=== PATIENT | male | born 1960 ===

== ENCOUNTER 2017-11-18 08:50 | Inpatient (IN) | payer MEDICAID, OTHER ==
[2017-11-18 09:20] VITALS: BMI 24.7
[2017-11-18] MEDS ORDERED: Sodium Chloride 0.9% 1,000 ML IV ONE (10:17)
--- NOTE | 2017-11-18 10:20 | ED PDOC ---
Lower Extremity Pain/Injury Time Seen by Provider: 11/18/17 09:54 Chief Complaint (Nursing): Lower Extremity Problem/Injury History Per: Patient, Sports Psychologist (hebrew) History/Exam Limitations: no limitations Onset/Duration Of Symptoms: Days (5), Gradual Severity: Moderate - Ankle/Foot Alleviating Factor(s): OTC Pain Medication Feet: 1 - erythema pain and swelling to left lateral mal 2 - pain and erythema Past Medical History Reviewed: Historical Data, Nursing Documentation, Vital Signs Vital Signs: Last Vital Signs Temp 98.5 F 11/18/17 09:20 Pulse 97 H 11/18/17 09:20 Resp 18 11/18/17 09:20 BP 117/66 11/18/17 09:20 Pulse Ox 98 11/18/17 09:20 - Medical History PMH: No Chronic Diseases - Family History Family History: States: Unknown Family Hx - Living Arrangements Living Arrangements: With Family - Social History Current smoker - smoking cessation education provided: No Drugs: Denies - Home Medications Home Medications: Ambulatory Orders Medication Instructions Recorded Glimepiride [Amaryl] 4 mg PO BID 11/18/17 metFORMIN [glucOPHAGE] 1,000 mg PO BID 11/18/17 - Allergies Allergies/Adverse Reactions: Allergies Allergy/AdvReac Type Severity Reaction Status Date / Time No Known Allergies Allergy Verified 11/18/17 09:47 Review of Systems ROS Statement: Except As Marked, All Systems Reviewed And Found Negative Constitutional: Negative for: Fever, Chills Cardiovascular: Negative for: Chest Pain, Palpitations Respiratory: Negative for: Cough, Shortness of Breath Gastrointestinal: Negative for: Nausea, Vomiting, Abdominal Pain Musculoskeletal: Positive for: Leg Pain (left ankle) Neurological: Negative for: Weakness, Numbness Physical Exam - Reviewed Nursing Documentation Reviewed: Yes Vital Signs Reviewed: Yes - Physical Exam Appears: Positive for: Uncomfortable Head Exam: Positive for: ATRAUMATIC, NORMAL INSPECTION, NORMOCEPHALIC Eye Exam: Positive for: Normal appearance, EOMI, PERRL Neck: Positive for: Normal, Painless ROM, Supple Cardiovascular/Chest: Positive for: Regular Rate, Rhythm, Chest Non Tender Respiratory: Positive for: Normal Breath Sounds. Negative for: Decreased Breath Sounds, Accessory Muscle Use, Crackles, Rales, Rhonchi, Stridor, Wheezing Gastrointestinal/Abdominal: Positive for: Normal Exam, Bowel Sounds, Soft. Negative for: Tenderness Back: Positive for: Normal Inspection. Negative for: L CVA Tenderness, R CVA Tenderness Extremity: Positive for: Normal ROM, Pedal Edema (on left a2+), Other (swelling and erythema to left lateral mal, 2 inc erythema to lower right cochran, foot nvi) . Negative for: Calf Tenderness Neurologic/Psych: Positive for: Alert, disbursement clerk II-XII, Oriented. Negative for: Motor/Sensory Deficits - Laboratory Results Result Diagrams: 11/18/17 10:40 11/18/17 10:40 - ECG O2 Sat by Pulse Oximetry: 98 Medical Decision Making Medical Decision Making: pt seen and eval by podiatry, pt has pain in left ankle, unable to ambulate due to the pain now fever. will start antibotics for septic arthritis pending cultures. Disposition - Clinical Impression Clinical Impression: Septic arthritis of ankle - Patient ED Disposition Is Patient to be Admitted: Yes Counseled Patient/Family Regarding: Studies Performed, Diagnosis - Disposition Disposition Time: 18:00 Condition: FAIR - Pt Status Changed To: Hospital Disposition Of: Inpatient - Admit Certification Admit to Inpatient:: After my assessment, the patient will require hospitalization for at least two midnights. This is because of the severity of symptoms shown, intensity of services needed, and/or the medical risk in this patient being treated as an outpatient. - POA Present On Arrival: None
[2017-11-18 10:52] LABS: BASO % 0.5 % (0.0-2.0); EOS % 0.6 % (0.0-4.0); HEMOGLOBIN 13.3 g/dL (12.0-18.0); LYMPH # 0.7 K/uL (1.0-4.3); LYMPH % 10.6 % (20.0-40.0); MEAN CELL VOLUME 77.4 fl (80.0-94.0); MEAN CORPUSCULAR HGB CONC 33.6 g/dL (33.0-37.0); MEAN PLATELET VOLUME 8.4 fl (7.2-11.7); MONO # 0.7 K/uL (0.0-0.8); NEUT # 4.8 K/uL (1.8-7.0); NEUT % 77.3 % (50.0-75.0); NRBC % 0.1 % (0.0-0.0); RBC 5.09 Mil/uL (4.40-5.90); WHITE BLOOD COUNT 6.2 K/uL (4.8-10.8)
--- NOTE | 2017-11-18 11:02 | RAD ---
PROCEDURE: Left Ankle Radiographs. HISTORY: pain and swelling for 3 days COMPARISON: None FINDINGS: BONES: Evidence of acute displaced fracture nor dislocation. The. Small anterior and posterior calcaneal enthesophytes former slightly larger than latter. JOINTS: Mild degenerative osteoarthritis tibiotalar articulation. SOFT TISSUES: Minimal soft tissue swelling overlying the lateral malleolus OTHER FINDINGS: None. IMPRESSION: No evidence of acute displaced fracture nor dislocation with minimal soft tissue swelling overlying the lateral malleolus. . Minor DJD as above.
[2017-11-18 11:08] LABS: ALB/GLOB RATIO 0.9 (1.0-2.1); ALBUMIN 3.8 g/dL (3.5-5.0); ALT/SGPT 37 U/L (21-72); AST/SGOT 33 U/L (17-59); BLOOD UREA NITROGEN 13 mg/dl (9-20); GFR AFRICAN-AMERICAN > 60; GFR NON-AFRICAN AMERICAN > 60
[2017-11-18 11:24] LABS: INR 1.1 (0.9-1.2); PARTIAL THROMBOPLASTIN TIME 34.1 Seconds (25.6-37.1); PROTHROMBIN TIME 11.8 Seconds (9.8-13.1)
[2017-11-18 11:27] LABS: URIC ACID 3.4 mg/Dl (3.5-8.5)
--- NOTE | 2017-11-18 12:26 | US ---
HISTORY: Pain PRIORS: None. FINDINGS: 2-D, color and duplex Doppler analysis of the lower extremity venous circulation using routine protocol from the femoral veins through the popliteal veins. Venous compressibility: Normal. Flow and augmentation patterns: Normal. Visualized veins upper third of calf: Normal. Pizarro cyst: None. IMPRESSION: No sonographic or Doppler evidence for DVT in left lower extremity.
[2017-11-18] MEDS ORDERED: Oxycodone/Acetaminophen 5/325 mg Tab PO STA (15:05)
--- NOTE | 2017-11-18 15:13 | CP.PCM.CON ---
History of Present Illness - History of Present Illness History of Present Illness: Orthopedic Consult Note- Dr. Recinos 57 y.o male with PMH of DM presents to the ED for left ankle pain secondary to trauma. Patient reports last Monday on 11/11/17, he twisted his ankle while walking outside. He reports hearing a pop and felt like "his skin cracked". He did not see a physician after the incident. He has been resting at home. Currently, unemployed. Patient reports pain, 9/10 on VAS scale today and reports pain has gotten progressively worse. He reports that pain cause him to have chills. Patient reports chills today and for the last few days. He describes the pain as a pulsating pain. He reports that he drink Tylenol and it helps a little with the pain. Patient also reports swelling and redness. He reports the red patch on the leg was from a previous injury prior to 11/11/17 but since the ankle injury, the red patch has gotten more red. Patient has been walking in shoes. He denies nausea, shortness of breath, chest pain, diarrhea, calf tenderness or pain. No urinary problems. Denies numbness and tingling. Patient reports chills in the ED PMD: Dr. West Holman PMH: DM PSH: soft mass removal from scalp ALL: NKDA MEDS: Metformin, Glimepiride FH: denies SH: former smoker; smoker for 20 year 3 cigarettes per day, denies socially drinking, denies illicit drug use, unemployed Past Patient History - Infectious Disease Hx of Infectious Diseases: None - Past Social History Drugs: Denies - CARDIAC Hx Cardiac Disorders: No - ENDOCRINE/METABOLIC Hx Endocrine Disorders: Yes Hx Diabetes Mellitus Type 2: Yes - PSYCHIATRIC Hx Psychophysiologic Disorder: No Hx Substance Use: No - SURGICAL HISTORY Hx Surgeries: No - ANESTHESIA Hx Anesthesia: No Meds Allergies/Adverse Reactions: Allergies Allergy/AdvReac Type Severity Reaction Status Date / Time No Known Allergies Allergy Verified 11/18/17 09:47 Physical Exam - Constitutional Appears: Well, Non-toxic, No Acute Distress - Extremities Exam Extremities exam: Negative for: calf tenderness Additional comments: Vasc: DP and PT 2/4 bilaterally, temperature gradient warm to warm bilaterally, L slightly warmer than R, localized nonpitting edema noted to the lateral malleolus Ortho: pain with palpation to the anterior border of the distal malleolus shaft - bone and surrounding soft tissue, pain with palpation at the patches of erythema, no pain at the level of the foot or areas distal to the ankle joint, pain at the Achilles tendon, no pain with the peroneals, pain with external rotation and dorsiflexion at the ankle, pain with ankle ROM Neuro: protective and gross sensation intact bilaterally, denies numbness or tingling Derm: anterior lower leg erythema/dark red patch measuring approximately 4 x 5 cm, no streaking, no fluctanance, no open lesions noted ecchymosis and erythema noted to the lateral aspect of the left ankle, no streaking, no fluctanance, no open lesions noted - Neurological Exam Neurological exam: Alert, Oriented x3 - Psychiatric Exam Psychiatric exam: Normal Affect, Normal Mood Results - Vital Signs Recent Vital Signs: Last Vital Signs Temp 98.5 F 11/18/17 09:20 Pulse 97 H 11/18/17 09:20 Resp 18 11/18/17 09:20 BP 117/66 11/18/17 09:20 Pulse Ox 98 11/18/17 10:24 - Labs Result Diagrams: 11/18/17 10:40 11/18/17 10:40 Labs: Laboratory Results - last 24 hr 11/18/17 11/18/17 11/18/17 10:40 10:40 10:40 WBC 6.2 RBC 5.09 Hgb 13.3 Hct 39.4 MCV 77.4 L MCH 26.0 L MCHC 33.6 RDW 13.0 Plt Count 253 MPV 8.4 Neut % (Auto) 77.3 H Lymph % (Auto) 10.6 L [place] % (Auto) 11.0 H Eos % (Auto) 0.6 Baso % (Auto) 0.5 Neut # (Auto) 4.8 Lymph # (Auto) 0.7 L [place] # (Auto) 0.7 Eos # (Auto) 0.0 Baso # (Auto) 0.0 ESR 69 H PT 11.8 INR 1.1 APTT 34.1 Sodium 138 Potassium 4.4 Chloride 98 Carbon Dioxide 27 Anion Gap 17 BUN 13 Creatinine 0.6 L Est GFR ( Amer) > 60 Est GFR (Non-Af Amer) > 60 Random Glucose 293 H Uric Acid 3.4 L Calcium 9.0 Total Bilirubin 0.5 AST 33 ALT 37 Alkaline Phosphatase 144 H Total Protein 8.0 Albumin 3.8 Globulin 4.1 H Albumin/Globulin Ratio 0.9 L Assessment & Plan - Assessment and Plan (Free Text) Assessment: 57 y.o male with PMH of DM presents to the ED for 1. left ankle pain secondary to trauma, likely ankle sprain vs ankle contusion 2. left anterior leg erythema- possible cellulitis 3. r/o gout, septic joint Plan: Patient examined and evaluated Discussed plan in detail with attending Labs, chart, vitals reviewed- febrile, absent leukocytosis X-rays left ankle-no fracture noted; WNL Ordered high tib-fib to r/o bony pathology f/u MRI of ankle and left lower extremity 1% lidocaine in a local block fashion to left ankle, cleansed site with betadine , and aspirated left ankle joint with 18 gauge needle. Patient tolerated the procedure well without incident. Aspiration of left ankle synovial performed in ED- about 3cc of yellow synovial fluid with minimal blood aspirated as well, no yellow cloudiness appreciated Synovial fluid sent to lab -slightly elevated synovial fluid -gram stain no WBC organism -less likely septic ankle joint Uric acid low ESR- elevated 69 c/w abx per medicine Will continue to follow patient while in house Thank you for allowing us to take part in patient's care
[2017-11-18 15:52] LABS: VENOUS BLOOD GAS PCO2 37 mmHg (40-60); VENOUS BLOOD GAS PO2 61 mm/Hg (30-55); VENOUS BLOOD PH 7.48 (7.32-7.43)
[2017-11-18] MEDS: cefTRIAXone 2 GM in Sodium Chloride 0.9% 100 ML IVPB SCH (16:00)
[2017-11-18] MEDS ORDERED: Povidone Iodine Oint 10% Foilpak UD TOP ONE (16:43)
[2017-11-18] MEDS ORDERED: Lidocaine 1% Inj (20ml) IJ ONE (16:43)
[2017-11-18] MEDS ORDERED: Povidone Iodine Topical 10% Sol ONE (16:53)
[2017-11-18] MEDS ORDERED: Lidocaine 1% Inj (20ml) ONE (16:53)
[2017-11-18] MEDS ORDERED: Glucagon Recombinant 1 mg Inj IM PRN (17:39)
[2017-11-18] MEDS ORDERED: Dextrose 50% SYRINGE Inj (50 ml) IV PRN (17:39)
--- NOTE | 2017-11-18 17:54 | CP.PCM.HP ---
History of Present Illness - History of Present Illness History of Present Illness: Hx taken from patient PMD: West Holman. Made appt for [facility] next month 57 y/o M with PMHx of NIDDM presented to ED c/o L/ankle and L/leg pain. As per patient he developed left ankle pain after twisting his L/leg around 1 week ago accidentally. Patient has been having increased left ankle pain since then with redness associated to the external malleolus area. Patient also c/o increased pain in L/anterior tibial area since he twisted his leg, however he states that redness in this area was present before, and was not related to trauma but has worsened since then. Tactile fever and chills at home for the past 2 days. Denies CP, palpitations, nausea, vomiting, SOB, headache, LE numbness or tingling. He is being compliant with his home meds for DM but admits not checking BS levels at home. ED course: CBC: No white count, slight left shift Temp 102.2, HR 90s Given Percocet x1, Tylenol x1, started on Vanco/Rocephin Ankle Xray: Minimal Soft tissue edema L/Lateral ankle area LE US neg for DVT Podiatry consulted PMHx: DM SHx: Denies tobacco, etoh or drugs SxHx: Scalp lipoma FHx: DM Meds: as per med rec Allergies: NKDA Present on Admission - Present on Admission Any Indicators Present on Admission: No Review of Systems - Review of Systems All systems: reviewed and no additional remarkable complaints except (Those described on HPI) Past Patient History - Infectious Disease Hx of Infectious Diseases: None - Past Social History Smoking Status: Never Smoked Alcohol: None Drugs: Denies - CARDIAC Hx Cardiac Disorders: No - PULMONARY Hx Respiratory Disorders: No - NEUROLOGICAL Hx Neurological Disorder: No - HEENT Hx HEENT Problems: No - RENAL Hx Chronic Kidney Disease: No - ENDOCRINE/METABOLIC Hx Endocrine Disorders: Yes (DM) Hx Diabetes Mellitus Type 2: Yes - HEMATOLOGICAL/ONCOLOGICAL Hx Blood Disorders: No - INTEGUMENTARY Hx Dermatological Problems: Yes - MUSCULOSKELETAL/RHEUMATOLOGICAL Hx Musculoskeletal Disorders: No - GASTROINTESTINAL Hx Gastrointestinal Disorders: No - GENITOURINARY/GYNECOLOGICAL Hx Genitourinary Disorders: No - PSYCHIATRIC Hx Psychophysiologic Disorder: No - SURGICAL HISTORY Hx Surgeries: Yes Other/Comment: Scalp cyst - ANESTHESIA Hx Anesthesia: Yes Meds Allergies/Adverse Reactions: Allergies Allergy/AdvReac Type Severity Reaction Status Date / Time No Known Allergies Allergy Verified 11/18/17 09:47 Physical Exam - Constitutional Appears: Non-toxic - Eye Exam Eye Exam: EOMI, PERRL - ENT Exam ENT Exam: Mucous Membranes Moist - Neck Exam Neck exam: Positive for: Full Rom - Respiratory Exam Respiratory Exam: Clear to Auscultation Bilateral, NORMAL BREATHING PATTERN. absent: Rales, Rhonchi, Wheezes, Respiratory Distress, Stridor - Cardiovascular Exam Cardiovascular Exam: REGULAR RHYTHM, +S1, +S2. absent: Gallop, Systolic Murmur - GI/Abdominal Exam GI & Abdominal Exam: Normal Bowel Sounds, Soft. absent: Distended, Firm, Guarding, Rebound, Rigid, Tenderness - Extremities Exam Extremities exam: Positive for: normal capillary refill, tenderness (L/lower ankle and anterior tibial area), pedal pulses present. Negative for: calf tenderness, normal inspection (redness with mild swelling around L/ext malleolus area) - Neurological Exam Neurological exam: Alert, Oriented x3, Reflexes Normal - Skin Skin Exam: Warm Results - Vital Signs Recent Vital Signs: Last Vital Signs Temp 100 F H 11/18/17 17:32 Pulse 88 11/18/17 17:32 Resp 20 11/18/17 17:32 BP 127/70 11/18/17 17:32 Pulse Ox 97 11/18/17 17:32 - Labs Result Diagrams: 11/18/17 10:40 11/18/17 10:40 Labs: Laboratory Results - last 24 hr 11/18/17 11/18/17 11/18/17 10:40 10:40 10:40 WBC 6.2 RBC 5.09 Hgb 13.3 Hct 39.4 MCV 77.4 L MCH 26.0 L MCHC 33.6 RDW 13.0 Plt Count 253 MPV 8.4 Neut % (Auto) 77.3 H Lymph % (Auto) 10.6 L [place] % (Auto) 11.0 H Eos % (Auto) 0.6 Baso % (Auto) 0.5 Neut # (Auto) 4.8 Lymph # (Auto) 0.7 L [place] # (Auto) 0.7 Eos # (Auto) 0.0 Baso # (Auto) 0.0 ESR 69 H PT 11.8 INR 1.1 APTT 34.1 pO2 VBG pH VBG pCO2 VBG HCO3 VBG Total CO2 VBG O2 Sat (Calc) VBG Base Excess VBG Potassium Glucose Lactate FiO2 Sodium 138 Potassium 4.4 Chloride 98 Carbon Dioxide 27 Anion Gap 17 BUN 13 Creatinine 0.6 L Est GFR ( Amer) > 60 Est GFR (Non-Af Amer) > 60 POC Glucose (mg/dL) Random Glucose 293 H Uric Acid 3.4 L Calcium 9.0 Total Bilirubin 0.5 AST 33 ALT 37 Alkaline Phosphatase 144 H Total Protein 8.0 Albumin 3.8 Globulin 4.1 H Albumin/Globulin Ratio 0.9 L Venous Blood Potassium 11/18/17 11/18/17 11/18/17 15:41 15:48 17:23 WBC RBC Hgb Hct MCV MCH MCHC RDW Plt Count MPV Neut % (Auto) Lymph % (Auto) [place] % (Auto) Eos % (Auto) Baso % (Auto) Neut # (Auto) Lymph # (Auto) [place] # (Auto) Eos # (Auto) Baso # (Auto) ESR PT INR APTT pO2 61 H VBG pH 7.48 H VBG pCO2 37 L VBG HCO3 27.9 VBG Total CO2 28.7 H VBG O2 Sat (Calc) 96.6 H VBG Base Excess 4.0 H VBG Potassium 4.1 Glucose 179 H Lactate 1.2 FiO2 21.0 Sodium 134.0 Potassium Chloride 104.0 Carbon Dioxide Anion Gap BUN Creatinine Est GFR ( Amer) Est GFR (Non-Af Amer) POC Glucose (mg/dL) 192 H 193 H Random Glucose Uric Acid Calcium Total Bilirubin AST ALT Alkaline Phosphatase Total Protein Albumin Globulin Albumin/Globulin Ratio Venous Blood Potassium 4.1 Assessment & Plan - Assessment and Plan (Free Text) Assessment: 57 y/o M with PMHx of DM admitted for possible septic arthritis Left ankle swelling R/O Septic arthritis Could be ankle sprain or any noninfectious inflammatory arthritis Fever, chills, ankle swelling/redness Hx of trauma No WBC. Elevated ESR Uric acid low DM unknown if controlled Orthopedic consult appreciated(Dr Recinos) S/P Joint aspiration by Podiatry resident Has cellulitis area on same leg, anterior tibial aspect with small abrasion that could represent source of infection Rocephin 2 g daily day 1 Vanco 1g q12h day 1 Ibuprofen 600mg q8h Toradol 15 mg IV PRN for severe pain Tylenol PRN for fever F/U Procalcitonin F/U Synovial fluid exam F/U BCx F/U RF, CBC and BMP AM Cellulitis left leg Skin marked Small abrasion + Uncontrlled DM could be reason of onset On Rocephin and Vanco IV NIDDM, poss uncontrolled Patient not checking BS at home Random BS at ED 190s C/w Metformin 1000mg BID and Glimepiride 4mg BID for now ISS ACHS low dose F/U HgbA1c Prophylactic measures DVT: Lovenox 40 mg daily AAD: Florastor BID
[2017-11-18] MEDS: Sodium Chloride 0.9% 1,000 ML IV SCH (18:21)
[2017-11-18 18:39] LABS: FLUID TYPE SYNOVIAL FLUID
[2017-11-18 19:37] LABS: SF GROSS APPEARANCE CLOUDY (CLEAR)
[2017-11-18 19:41] LABS: SYNOVIAL FLUID COMMENT BROWNISH
[2017-11-18 20:19] LABS: HDL CHOLESTEROL 24 MG/DL (30-70)
[2017-11-18 20:30] LABS: LDL CHOLESTEROL 65 mg/dL (0-129)
[2017-11-18 21:17] LABS: SYNOVIAL FLUID MONO/MACROPHAGE 15 % (0-0)
--- NOTE | 2017-11-18 21:32 | CP.PCM.CON ---
History of Present Illness - History of Present Illness History of Present Illness: ID: 57 yo unemployed male CC: pain in are of L distal forelg and L ankle HPI- please refer to resident, DR Garner history Past Patient History - Infectious Disease Hx of Infectious Diseases: None - Past Medical History & Family History Past Medical History?: Yes - Past Social History Smoking Status: Never Smoked Alcohol: None Drugs: Denies - CARDIAC Hx Cardiac Disorders: No - PULMONARY Hx Respiratory Disorders: No - NEUROLOGICAL Hx Neurological Disorder: No - HEENT Hx HEENT Problems: No - RENAL Hx Chronic Kidney Disease: No - ENDOCRINE/METABOLIC Hx Endocrine Disorders: Yes (DM) Hx Diabetes Mellitus Type 2: Yes - HEMATOLOGICAL/ONCOLOGICAL Hx Blood Disorders: No - INTEGUMENTARY Hx Dermatological Problems: Yes - MUSCULOSKELETAL/RHEUMATOLOGICAL Hx Musculoskeletal Disorders: No - GASTROINTESTINAL Hx Gastrointestinal Disorders: No - GENITOURINARY/GYNECOLOGICAL Hx Genitourinary Disorders: No - PSYCHIATRIC Hx Psychophysiologic Disorder: No - SURGICAL HISTORY Hx Surgeries: Yes Other/Comment: Scalp cyst - ANESTHESIA Hx Anesthesia: Yes Meds Allergies/Adverse Reactions: Allergies Allergy/AdvReac Type Severity Reaction Status Date / Time No Known Allergies Allergy Verified 11/18/17 09:47 - Medications Medications: Current Medications Acetaminophen (Tylenol 325mg Tab) 650 mg PO Q6 PRN PRN Reason: Fever >100.4 F Dextrose (Dextrose 50% Inj) 0 ml IV STAT PRN; Protocol PRN Reason: Hypoglycemia Protocol Dextrose (Glutose 15) 0 gm PO ONCE PRN; Protocol PRN Reason: Hypoglycemia Protocol Enoxaparin Sodium (Lovenox) 40 mg SC DAILY [place] PRN Reason: Protocol Famotidine (Pepcid) 20 mg PO BID [place] Glipizide (Glucotrol Xl) 10 mg PO BIDWM [facility] Glucagon (Glucagen Diagnostic Kit) 0 mg IM STAT PRN; Protocol PRN Reason: Hypoglycemia Protocol Ceftriaxone Sodium 2 gm/ (Sodium Chloride) 100 mls @ 100 mls/hr IVPB DAILY [place] PRN Reason: Protocol Last Admin: 11/18/17 16:00 Dose: 100 mls/hr Sodium Chloride (Sodium Chloride 0.9%) 1,000 mls @ 100 mls/hr IV .Q10H [place] Last Admin: 11/18/17 18:21 Dose: 100 mls/hr Vancomycin HCl 1 gm/ Sodium (Chloride) 250 mls @ 166.667 mls/hr IVPB Q12H [place] PRN Reason: Protocol Ibuprofen (Motrin Tab) 600 mg PO Q8 [facility] Influenza Virus Vaccine (Afluria (Pf)(18yr & Older)) 0.5 ml IM .ONCE ONE Stop: 11/18/17 22:01 Insulin Human Regular (Humulin R) 0 units SC ACCU-CHECK [place] PRN Reason: Protocol Ketorolac Tromethamine (Toradol) 15 mg IVP Q6 PRN PRN Reason: Pain, severe (8-10) Last Admin: 11/18/17 20:11 Dose: 15 mg Metformin HCl (Glucophage) 1,000 mg PO BIDWM [facility] Pneumococcal Polyvalent Vaccine (Pneumovax 23 Vaccine) 0.5 ml IM .ONCE ONE Stop: 11/18/17 22:01 Saccharomyces Boulardii (Florastor) 250 mg PO BID [facility] Physical Exam - Additional Findings Additional findings: Musculoskekltal stance/gait- defrred pt with are of erythema on distal 1/3 medial aspect odf tibia N/V intact no increased pain on passive flexion/dorsiflexion no pain on passive rom tenderness in are of syndesmosis Results - Vital Signs Recent Vital Signs: Last Vital Signs Temp 100 F H 11/18/17 17:32 Pulse 88 11/18/17 17:32 Resp 20 11/18/17 17:32 BP 127/70 11/18/17 17:32 Pulse Ox 97 11/18/17 17:32 - Labs Result Diagrams: 11/18/17 10:40 11/18/17 10:40 Labs: Laboratory Results - last 24 hr 11/18/17 11/18/17 11/18/17 10:40 10:40 10:40 WBC 6.2 RBC 5.09 Hgb 13.3 Hct 39.4 MCV 77.4 L MCH 26.0 L MCHC 33.6 RDW 13.0 Plt Count 253 MPV 8.4 Neut % (Auto) 77.3 H Lymph % (Auto) 10.6 L [place] % (Auto) 11.0 H Eos % (Auto) 0.6 Baso % (Auto) 0.5 Neut # (Auto) 4.8 Lymph # (Auto) 0.7 L [place] # (Auto) 0.7 Eos # (Auto) 0.0 Baso # (Auto) 0.0 ESR 69 H PT 11.8 INR 1.1 APTT 34.1 pO2 VBG pH VBG pCO2 VBG HCO3 VBG Total CO2 VBG O2 Sat (Calc) VBG Base Excess VBG Potassium Glucose Lactate FiO2 Sodium 138 Potassium 4.4 Chloride 98 Carbon Dioxide 27 Anion Gap 17 BUN 13 Creatinine 0.6 L Est GFR ( Amer) > 60 Est GFR (Non-Af Amer) > 60 POC Glucose (mg/dL) Random Glucose 293 H Uric Acid 3.4 L Calcium 9.0 Total Bilirubin 0.5 AST 33 ALT 37 Alkaline Phosphatase 144 H Total Protein 8.0 Albumin 3.8 Globulin 4.1 H Albumin/Globulin Ratio 0.9 L Triglycerides Cholesterol LDL Cholesterol Direct HDL Cholesterol Venous Blood Potassium Fluid Type Synovial WBC Synovial RBC Synovial Neutrophils Synovial Lymphocytes Synov Monos/Macrophage Synovial Fluid Comment 11/18/17 11/18/17 11/18/17 15:41 15:48 17:23 WBC RBC Hgb Hct MCV MCH MCHC RDW Plt Count MPV Neut % (Auto) Lymph % (Auto) [place] % (Auto) Eos % (Auto) Baso % (Auto) Neut # (Auto) Lymph # (Auto) [place] # (Auto) Eos # (Auto) Baso # (Auto) ESR PT INR APTT pO2 61 H VBG pH 7.48 H VBG pCO2 37 L VBG HCO3 27.9 VBG Total CO2 28.7 H VBG O2 Sat (Calc) 96.6 H VBG Base Excess 4.0 H VBG Potassium 4.1 Glucose 179 H Lactate 1.2 FiO2 21.0 Sodium 134.0 Potassium Chloride 104.0 Carbon Dioxide Anion Gap BUN Creatinine Est GFR ( Amer) Est GFR (Non-Af Amer) POC Glucose (mg/dL) 192 H 193 H Random Glucose Uric Acid Calcium Total Bilirubin AST ALT Alkaline Phosphatase Total Protein Albumin Globulin Albumin/Globulin Ratio Triglycerides Cholesterol LDL Cholesterol Direct HDL Cholesterol Venous Blood Potassium 4.1 Fluid Type Synovial WBC Synovial RBC Synovial Neutrophils Synovial Lymphocytes Synov Monos/Macrophage Synovial Fluid Comment 11/18/17 11/18/17 18:30 19:00 WBC RBC Hgb Hct MCV MCH MCHC RDW Plt Count MPV Neut % (Auto) Lymph % (Auto) [place] % (Auto) Eos % (Auto) Baso % (Auto) Neut # (Auto) Lymph # (Auto) [place] # (Auto) Eos # (Auto) Baso # (Auto) ESR PT INR APTT pO2 VBG pH VBG pCO2 VBG HCO3 VBG Total CO2 VBG O2 Sat (Calc) VBG Base Excess VBG Potassium Glucose Lactate FiO2 Sodium Potassium Chloride Carbon Dioxide Anion Gap BUN Creatinine Est GFR ( Amer) Est GFR (Non-Af Amer) POC Glucose (mg/dL) Random Glucose Uric Acid Calcium Total Bilirubin AST ALT Alkaline Phosphatase Total Protein Albumin Globulin Albumin/Globulin Ratio Triglycerides 88 Cholesterol 115 LDL Cholesterol Direct 65 HDL Cholesterol 24 L Venous Blood Potassium Fluid Type Synovial fluid Synovial WBC 1926.0 H Synovial RBC 4455.0 H Synovial Neutrophils 44.0 H Synovial Lymphocytes 41.0 H Synov Monos/Macrophage 15 H Synovial Fluid Comment Brownish - Impressions Impression: Xrays- negative for fracture Assessment & Plan - Assessment and Plan (Free Text) Assessment: A- contusion vs ankle sprain no evidence for septic ankle P MRI ankle/ tibia, fibula
[2017-11-18] MEDS ORDERED: Pneumococcal 23-Valent Vaccine IM ONE (22:00)
[2017-11-18] MEDS ORDERED: Influenza Vaccine 18yr & older 0.5 ML/45 MCG SYR IM ONE (22:00)
[2017-11-18] MEDS: Insulin Regular 100 units/ml SC SCH (22:43)
[2017-11-19 04:17] LABS: URINE BACTERIA RARE (<OCC); URINE BILIRUBIN NEGATIVE (NEGATIVE); URINE BLOOD NEGATIVE (NEGATIVE); URINE CLARITY SLIGHTY-CLOUDY (Clear); URINE COLOR YELLOW (YELLOW); URINE GLUCOSE (UA) >=500 mg/dL (Normal); URINE LEUKOCYTE ESTERASE NEG Leu/uL (Negative); URINE PROTEIN 30 mg/dL (NEGATIVE); URINE UROBILINOGEN 0.2-1.0 mg/dL (0.2-1.0)
[2017-11-19] MEDS: Sodium Chloride 0.9% 1,000 ML IV SCH ×2 (04:53→15:21)
[2017-11-19 07:09] LABS: BASO % 0.5 % (0.0-2.0); EOS % 0.6 % (0.0-4.0); HEMOGLOBIN 12.5 g/dL (12.0-18.0); LYMPH # 0.8 K/uL (1.0-4.3); MEAN CELL VOLUME 77.4 fl (80.0-94.0); MEAN CORPUSCULAR HEMOGLOBIN 26.3 pg (27.0-31.0); MEAN PLATELET VOLUME 8.6 fl (7.2-11.7); MONO # 0.6 K/uL (0.0-0.8); MONO % 11.6 % (0.0-10.0); NEUT # 3.4 K/uL (1.8-7.0); NEUT % 70.3 % (50.0-75.0); NRBC % 0.1 % (0.0-0.0); RBC 4.77 Mil/uL (4.40-5.90); RED CELL DISTRIBUTION WIDTH 12.8 % (11.5-14.5); WHITE BLOOD COUNT 4.9 K/uL (4.8-10.8)
[2017-11-19 07:15] LABS: BLOOD UREA NITROGEN 12 mg/dl (9-20); CALCIUM 8.5 mg/dL (8.4-10.2); GFR AFRICAN-AMERICAN > 60; GFR NON-AFRICAN AMERICAN > 60
[2017-11-19] MEDS: GlipiZIDE 10 mg SR Tab PO SCH ×2 (08:27→16:44)
[2017-11-19] MEDS: Saccharomyces Boulardi 250 mg Cap PO SCH ×2 (08:27→16:43)
[2017-11-19] MEDS: Enoxaparin 40 mg Syringe SC SCH (08:28)
[2017-11-19] MEDS: Insulin Regular 100 units/ml SC SCH ×4 (08:28→22:19)
--- NOTE | 2017-11-19 09:22 | RAD ---
PROCEDURE: Radiographs of the left tibia and fibula. HISTORY: r/o high tib-fib pathology COMPARISON: Comparison made with ankle radiographs 11/18/2017 TECHNIQUE: Frontal and lateral views obtained. FINDINGS: BONES: No fracture or destructive lesion. 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 IMPRESSION: No evidence of acute displaced fracture nor dislocation. .
[2017-11-19] MEDS: cefTRIAXone 2 GM in Sodium Chloride 0.9% 100 ML IVPB SCH (11:01)
--- NOTE | 2017-11-19 12:45 | CP.PCM.PN ---
Subjective - Date & Time of Evaluation Date of Evaluation: 11/19/17 Time of Evaluation: 08:50 - Subjective Subjective: Pt seen at bedside, reports being seen by specialist. pain controlled. feeling ok. denies any chest pain, fevers, chills, nausea or vomiting Objective - Vital Signs/Intake and Output Vital Signs (last 24 hours): Temp Pulse Resp BP Pulse Ox 97.8 F 70 20 134/67 100 11/19/17 08:01 11/19/17 08:01 11/19/17 08:01 11/19/17 08:01 11/19/17 08:01 - Medications Medications: Current Medications Acetaminophen (Tylenol 325mg Tab) 650 mg PO Q6 PRN PRN Reason: Fever >100.4 F Dextrose (Dextrose 50% Inj) 0 ml IV STAT PRN; Protocol PRN Reason: Hypoglycemia Protocol Dextrose (Glutose 15) 0 gm PO ONCE PRN; Protocol PRN Reason: Hypoglycemia Protocol Enoxaparin Sodium (Lovenox) 40 mg SC DAILY [facility] PRN Reason: Protocol Last Admin: 11/19/17 08:28 Dose: 40 mg Famotidine (Pepcid) 20 mg PO BID [facility] Last Admin: 11/19/17 08:29 Dose: 20 mg Glipizide (Glucotrol Xl) 10 mg PO BIDWM [facility] Last Admin: 11/19/17 08:27 Dose: 10 mg Glucagon (Glucagen Diagnostic Kit) 0 mg IM STAT PRN; Protocol PRN Reason: Hypoglycemia Protocol Ceftriaxone Sodium 2 gm/ (Sodium Chloride) 100 mls @ 100 mls/hr IVPB DAILY [facility] PRN Reason: Protocol Last Admin: 11/19/17 11:01 Dose: 100 mls/hr Sodium Chloride (Sodium Chloride 0.9%) 1,000 mls @ 100 mls/hr IV .Q10H [facility] Last Admin: 11/19/17 04:53 Dose: Not Given Vancomycin HCl 1 gm/ Sodium (Chloride) 250 mls @ 166.667 mls/hr IVPB Q12@0500, 1700 [facility] PRN Reason: Protocol Last Admin: 11/19/17 04:54 Dose: 166.667 mls/hr Ibuprofen (Motrin Tab) 600 mg PO Q8 [facility] Last Admin: 11/19/17 08:32 Dose: 600 mg Insulin Human Regular (Humulin R) 0 units SC ACCU-CHECK [facility] PRN Reason: Protocol Last Admin: 11/19/17 12:01 Dose: 3 units Ketorolac Tromethamine (Toradol) 15 mg IVP Q6 PRN PRN Reason: Pain, severe (8-10) Last Admin: 11/18/17 20:11 Dose: 15 mg Metformin HCl (Glucophage) 1,000 mg PO BIDWM [facility] Last Admin: 11/19/17 08:27 Dose: 1,000 mg Saccharomyces Boulardii (Florastor) 250 mg PO BID [facility] Last Admin: 11/19/17 08:27 Dose: 250 mg - Labs Labs: 11/19/17 05:25 11/19/17 05:25 PT 11.8 Seconds (9.8-13.1) 11/18/17 10:40 INR 1.1 (0.9-1.2) 11/18/17 10:40 APTT 34.1 Seconds (25.6-37.1) 11/18/17 10:40 - Constitutional Appears: Non-toxic, No Acute Distress - Respiratory Exam Respiratory Exam: Clear to Ausculation Bilateral, NORMAL BREATHING PATTERN - Cardiovascular Exam Cardiovascular Exam: REGULAR RHYTHM, +S1, +S2 - GI/Abdominal Exam GI & Abdominal Exam: Soft, Normal Bowel Sounds - Neurological Exam Neurological Exam: Alert, CN II-XII Intact, Oriented x3 Assessment and Plan - Assessment and Plan (Free Text) Assessment: 57 y/o M with PMHx of Type 2 non -insulin dependet DM admitted for possible septic arthritis which has since been rule out. Left ankle swelling and left leg cellulitis Sepsis resolved continue with ceftriaxone and vanco (day 2) Ortho following, recommendations appreciated NIDDM, uncontrolled (A1C - 10.3) ACHS POC C/w Metformin 1000mg BID and Glimepiride 4mg BID for now ISS low dose ordered lipid panel and Microalb/creatine ratio, f/u results Diet- Diabetic Prophylactic measures DVT: Lovenox 40 mg daily AAD: Florastor BID
[2017-11-19 12:50] LABS: HDL CHOLESTEROL 22 MG/DL (30-70)
[2017-11-19 13:00] LABS: LDL CHOLESTEROL 60 mg/dL (0-129)
--- NOTE | 2017-11-19 15:58 | CP.PCM.PN ---
Subjective - Date & Time of Evaluation Date of Evaluation: 11/19/17 Time of Evaluation: 13:00 - Subjective Subjective: Progress Note- Dr. Recinos 57 y.o male seen and evaluated at bedside. was present during visitation. Patient is seen resting comfortably at bedside, in NAD, and AA0x3. Patient reports he feels slightly better. Reports that the intensity of the pain is still 9/10 when present but the pain is not as frequent. He reports pain medication helps with the pain. Patient reports at the moment he does not have any chills or fever. Patient denies nausea, fever, shortness of breath, chest pain, or chills. Objective - Vital Signs/Intake and Output Vital Signs (last 24 hours): Temp Pulse Resp BP Pulse Ox 97.8 F 70 20 134/67 100 11/19/17 08:01 11/19/17 08:01 11/19/17 08:01 11/19/17 08:01 11/19/17 08:01 - Medications Medications: Current Medications Acetaminophen (Tylenol 325mg Tab) 650 mg PO Q6 PRN PRN Reason: Fever >100.4 F Dextrose (Dextrose 50% Inj) 0 ml IV STAT PRN; Protocol PRN Reason: Hypoglycemia Protocol Dextrose (Glutose 15) 0 gm PO ONCE PRN; Protocol PRN Reason: Hypoglycemia Protocol Enoxaparin Sodium (Lovenox) 40 mg SC DAILY [facility] PRN Reason: Protocol Last Admin: 11/19/17 08:28 Dose: 40 mg Famotidine (Pepcid) 20 mg PO BID [facility] Last Admin: 11/19/17 08:29 Dose: 20 mg Glipizide (Glucotrol Xl) 10 mg PO BIDWM [facility] Last Admin: 11/19/17 08:27 Dose: 10 mg Glucagon (Glucagen Diagnostic Kit) 0 mg IM STAT PRN; Protocol PRN Reason: Hypoglycemia Protocol Ceftriaxone Sodium 2 gm/ (Sodium Chloride) 100 mls @ 100 mls/hr IVPB DAILY [facility] PRN Reason: Protocol Last Admin: 11/19/17 11:01 Dose: 100 mls/hr Sodium Chloride (Sodium Chloride 0.9%) 1,000 mls @ 100 mls/hr IV .Q10H [facility] Last Admin: 11/19/17 15:21 Dose: 100 mls/hr Vancomycin HCl 1 gm/ Sodium (Chloride) 250 mls @ 166.667 mls/hr IVPB Q12@0500, 1700 [facility] PRN Reason: Protocol Last Admin: 11/19/17 04:54 Dose: 166.667 mls/hr Ibuprofen (Motrin Tab) 600 mg PO Q8 [facility] Last Admin: 11/19/17 08:32 Dose: 600 mg Insulin Human Regular (Humulin R) 0 units SC ACCU-CHECK [facility] PRN Reason: Protocol Last Admin: 11/19/17 12:01 Dose: 3 units Ketorolac Tromethamine (Toradol) 15 mg IVP Q6 PRN PRN Reason: Pain, severe (8-10) Last Admin: 11/19/17 15:14 Dose: 15 mg Metformin HCl (Glucophage) 1,000 mg PO BIDWM [facility] Last Admin: 11/19/17 08:27 Dose: 1,000 mg Saccharomyces Boulardii (Florastor) 250 mg PO BID [facility] Last Admin: 11/19/17 08:27 Dose: 250 mg - Labs Labs: 11/19/17 05:25 11/19/17 05:25 PT 11.8 Seconds (9.8-13.1) 11/18/17 10:40 INR 1.1 (0.9-1.2) 11/18/17 10:40 APTT 34.1 Seconds (25.6-37.1) 11/18/17 10:40 - Constitutional Appears: Well, Non-toxic, No Acute Distress - Extremities Exam Extremities Exam: absent: Calf Tenderness Additional comments: Vasc: DP and PT 2/4 bilaterally, temperature gradient warm to warm bilaterally, L slightly warmer than R, localized nonpitting edema noted to the lateral malleolus Ortho: pain with palpation to the anterior border of the distal malleolus shaft - bone and surrounding soft tissue, pain with palpation at the patches of erythema, no pain at the level of the foot or areas distal to the ankle joint, no pain at the Achilles tendon today, no pain with the peroneals, pain with external rotation and dorsiflexion at the ankle, pain with ankle ROM Neuro: protective and gross sensation intact bilaterally, denies numbness or tingling Derm: anterior lower leg erythema/dark red patch measuring approximately 4 x 5 cm, appears the same as yesterday with no changes, no streaking, no fluctanance , no open lesions noted ecchymosis and erythema noted to the lateral aspect of the left ankle, no streaking, no fluctanance, no open lesions noted - Neurological Exam Neurological Exam: Alert, Awake, Oriented x3 - Psychiatric Exam Psychiatric exam: Normal Affect, Normal Mood Assessment and Plan - Assessment and Plan (Free Text) Assessment: 57 y.o male with PMH of DM presents to the ED for 1. left ankle pain secondary to trauma, likely ankle sprain vs ankle contusion 2. left anterior leg erythema- possible cellulitis 3. r/o gout, septic joint Plan: Patient examined and evaluated Discussed plan in detail with attending Labs, chart, vitals reviewed- febrile, absent leukocytosis X-rays left ankle-no fracture noted; WNL X-ray left tib-fib- no fracture noted U/S no DVT ordered MRI of ankle and left lower extremity Synovial fluid -WBC slightly elevated synovial fluid -gram stain no WBC organism -less likely septic ankle joint Uric acid low ESR- elevated 69 c/w abx per medicine Will continue to follow patient while in house
[2017-11-20] MEDS: Sodium Chloride 0.9% 1,000 ML IV SCH ×4 (00:23→20:00)
--- NOTE | 2017-11-20 06:58 | CP.PCM.PN ---
Subjective - Date & Time of Evaluation Date of Evaluation: 11/20/17 Time of Evaluation: 09:35 - Subjective Subjective: Pt seen and evaluated at bedside this am; no acute events reported overnight. Has been getting antibiotics. Denies chest pain, difficulty breathing, abdominal pain, other complaints. Objective - Vital Signs/Intake and Output Vital Signs (last 24 hours): Temp Pulse Resp BP Pulse Ox 98.5 F 95 H 20 129/68 98 11/20/17 00:00 11/20/17 00:00 11/20/17 00:00 11/20/17 00:00 11/20/17 00:00 - Medications Medications: Current Medications Acetaminophen (Tylenol 325mg Tab) 650 mg PO Q6 PRN PRN Reason: Fever >100.4 F Dextrose (Dextrose 50% Inj) 0 ml IV STAT PRN; Protocol PRN Reason: Hypoglycemia Protocol Dextrose (Glutose 15) 0 gm PO ONCE PRN; Protocol PRN Reason: Hypoglycemia Protocol Enoxaparin Sodium (Lovenox) 40 mg SC DAILY [facility] PRN Reason: Protocol Last Admin: 11/19/17 08:28 Dose: 40 mg Famotidine (Pepcid) 20 mg PO BID [facility] Last Admin: 11/19/17 16:45 Dose: 20 mg Glipizide (Glucotrol Xl) 10 mg PO BIDWM [facility] Last Admin: 11/19/17 16:44 Dose: 10 mg Glucagon (Glucagen Diagnostic Kit) 0 mg IM STAT PRN; Protocol PRN Reason: Hypoglycemia Protocol Ceftriaxone Sodium 2 gm/ (Sodium Chloride) 100 mls @ 100 mls/hr IVPB DAILY [facility] PRN Reason: Protocol Last Admin: 11/19/17 11:01 Dose: 100 mls/hr Sodium Chloride (Sodium Chloride 0.9%) 1,000 mls @ 100 mls/hr IV .Q10H [facility] Last Admin: 11/20/17 02:20 Dose: 100 mls/hr Vancomycin HCl 1 gm/ Sodium (Chloride) 250 mls @ 166.667 mls/hr IVPB Q12@0500, 1700 [facility] PRN Reason: Protocol Last Admin: 11/20/17 04:52 Dose: 166.667 mls/hr Ibuprofen (Motrin Tab) 600 mg PO Q8 [facility] Last Admin: 11/20/17 00:26 Dose: 600 mg Insulin Human Regular (Humulin R) 0 units SC ACCU-CHECK [facility] PRN Reason: Protocol Last Admin: 11/19/17 22:19 Dose: Not Given Ketorolac Tromethamine (Toradol) 15 mg IVP Q6 PRN PRN Reason: Pain, severe (8-10) Last Admin: 11/19/17 22:02 Dose: 15 mg Metformin HCl (Glucophage) 1,000 mg PO BIDWM [facility] Last Admin: 11/19/17 16:43 Dose: 1,000 mg Saccharomyces Boulardii (Florastor) 250 mg PO BID [facility] Last Admin: 11/19/17 16:43 Dose: 250 mg - Labs Labs: 11/19/17 05:25 11/19/17 05:25 PT 11.8 Seconds (9.8-13.1) 11/18/17 10:40 INR 1.1 (0.9-1.2) 11/18/17 10:40 APTT 34.1 Seconds (25.6-37.1) 11/18/17 10:40 - Constitutional Appears: No Acute Distress - Eye Exam Eye Exam: Normal appearance - ENT Exam ENT Exam: Mucous Membranes Moist - Neck Exam Neck Exam: Full ROM - Respiratory Exam Respiratory Exam: Clear to Ausculation Bilateral, NORMAL BREATHING PATTERN - Cardiovascular Exam Cardiovascular Exam: REGULAR RHYTHM, +S1, +S2 - GI/Abdominal Exam GI & Abdominal Exam: Soft, Normal Bowel Sounds. absent: Tenderness - Extremities Exam Extremities Exam: absent: Calf Tenderness Additional comments: LEFT lower extremity: area of erythema on anterior aspect of distal tibia, demarcated with pen, not extending past demarcation; pain/tenderness with palpation area of erythema on lateral malleolus; demarcated with pen; not extending past demarcation; pain/tenderness with palpation - Neurological Exam Neurological Exam: Alert, Awake - Psychiatric Exam Psychiatric exam: Normal Mood - Skin Skin Exam: Dry, Warm Assessment and Plan - Assessment and Plan (Free Text) Assessment: 57 yo M with PMH diabetes mellitus admitted for left lower extremity cellulitis. Plan: # Left ankle swelling and left leg cellulitis - Continue with ceftriaxone and vancomycin (day 3) - Ortho consult; following, recommendations appreciated - MRI left lower extremity today # NIDDM - Uncontrolled, A1c 10.3 - Metformin 1,000 mg BIDWM; glipizide 10 mg BIDWM - Insulin coverage scale and hypoglycemia protocol - Accucheck ACHS - Diabetic diet - Lipid panel: total 108, LDL 60, HDL 22, Trig 98 - Diabetic diet # Prophylactic measures DVT: Lovenox 40 mg daily AAD: Florastor BID
[2017-11-20] MEDS: Insulin Regular 100 units/ml SC SCH ×4 (07:52→23:05)
--- NOTE | 2017-11-20 08:46 | CP.PCM.PN ---
Subjective - Date & Time of Evaluation Date of Evaluation: 11/20/17 Time of Evaluation: 07:45 - Subjective Subjective: Patient seen and examined at bedside comfortable. Pain is improved since yesterday. Unable to bear weight 2nd to pain. No acute events overnight. Objective - Vital Signs/Intake and Output Vital Signs (last 24 hours): Temp Pulse Resp BP Pulse Ox 98.6 F 84 20 144/72 98 11/20/17 08:15 11/20/17 08:15 11/20/17 08:15 11/20/17 08:15 11/20/17 08:15 - Medications Medications: Current Medications Acetaminophen (Tylenol 325mg Tab) 650 mg PO Q6 PRN PRN Reason: Fever >100.4 F Dextrose (Dextrose 50% Inj) 0 ml IV STAT PRN; Protocol PRN Reason: Hypoglycemia Protocol Dextrose (Glutose 15) 0 gm PO ONCE PRN; Protocol PRN Reason: Hypoglycemia Protocol Enoxaparin Sodium (Lovenox) 40 mg SC DAILY [facility] PRN Reason: Protocol Last Admin: 11/19/17 08:28 Dose: 40 mg Famotidine (Pepcid) 20 mg PO BID [facility] Last Admin: 11/19/17 16:45 Dose: 20 mg Glipizide (Glucotrol Xl) 10 mg PO BIDWM [facility] Last Admin: 11/19/17 16:44 Dose: 10 mg Glucagon (Glucagen Diagnostic Kit) 0 mg IM STAT PRN; Protocol PRN Reason: Hypoglycemia Protocol Ceftriaxone Sodium 2 gm/ (Sodium Chloride) 100 mls @ 100 mls/hr IVPB DAILY [facility] PRN Reason: Protocol Last Admin: 11/19/17 11:01 Dose: 100 mls/hr Sodium Chloride (Sodium Chloride 0.9%) 1,000 mls @ 100 mls/hr IV .Q10H [facility] Last Admin: 11/20/17 02:20 Dose: 100 mls/hr Vancomycin HCl 1 gm/ Sodium (Chloride) 250 mls @ 166.667 mls/hr IVPB Q12@0500, 1700 [facility] PRN Reason: Protocol Last Admin: 11/20/17 04:52 Dose: 166.667 mls/hr Ibuprofen (Motrin Tab) 600 mg PO Q8 [facility] Last Admin: 11/20/17 00:26 Dose: 600 mg Insulin Human Regular (Humulin R) 0 units SC ACCU-CHECK [facility] PRN Reason: Protocol Last Admin: 11/20/17 07:52 Dose: Not Given Ketorolac Tromethamine (Toradol) 15 mg IVP Q6 PRN PRN Reason: Pain, severe (8-10) Last Admin: 11/20/17 07:10 Dose: 15 mg Metformin HCl (Glucophage) 1,000 mg PO BIDWM [facility] Last Admin: 11/19/17 16:43 Dose: 1,000 mg Saccharomyces Boulardii (Florastor) 250 mg PO BID [facility] Last Admin: 11/19/17 16:43 Dose: 250 mg - Labs Labs: 11/19/17 05:25 11/19/17 05:25 PT 11.8 Seconds (9.8-13.1) 11/18/17 10:40 INR 1.1 (0.9-1.2) 11/18/17 10:40 APTT 34.1 Seconds (25.6-37.1) 11/18/17 10:40 - Extremities Exam Additional comments: LLE: pain with palpation laterally at ATFL region and distal syndesmosis, no tenderness medially, anterior lower leg red patch without change in size according to measurement markings placed, Gross NVI distally, motor intact EHL/ FHL/TA/G, compartments soft and NT b/l. Assessment and Plan (1) Left ankle sprain Assessment & Plan: -pending MRI -posterior short leg splint applied for immobilization -NWB until MRI complete -PT/OT -care as per medicine -case and plan d/w Dr. Recinos in agreement Status: Acute
[2017-11-20] MEDS: Saccharomyces Boulardi 250 mg Cap PO SCH ×2 (09:39→16:56)
[2017-11-20] MEDS: GlipiZIDE 10 mg SR Tab PO SCH ×2 (09:39→16:56)
[2017-11-20] MEDS: Enoxaparin 40 mg Syringe SC SCH (09:40)
[2017-11-20] MEDS: cefTRIAXone 2 GM in Sodium Chloride 0.9% 100 ML IVPB SCH (09:41)
[2017-11-20] MEDS ORDERED: Gadodiamide 287 MG/ML VIAL (15ML) IV ONE (17:26)
[2017-11-21] MEDS: Insulin Regular 100 units/ml SC SCH ×3 (06:46→16:36)
--- NOTE | 2017-11-21 09:18 | CP.PCM.PN ---
Subjective - Date & Time of Evaluation Date of Evaluation: 11/21/17 Time of Evaluation: 07:45 - Subjective Subjective: Pt seen and evaluated at bedside this morning; no acute events overnight; states he had visitors (children, grandchildren). States he has pain that is alleviated with medication but it returns when medication wears off. Objective - Vital Signs/Intake and Output Vital Signs (last 24 hours): Temp Pulse Resp BP Pulse Ox 98.1 F 76 20 137/71 99 11/21/17 07:57 11/21/17 07:57 11/21/17 07:57 11/21/17 07:57 11/21/17 07:57 - Medications Medications: Current Medications Acetaminophen (Tylenol 325mg Tab) 650 mg PO Q6 PRN PRN Reason: Fever >100.4 F Dextrose (Dextrose 50% Inj) 0 ml IV STAT PRN; Protocol PRN Reason: Hypoglycemia Protocol Dextrose (Glutose 15) 0 gm PO ONCE PRN; Protocol PRN Reason: Hypoglycemia Protocol Enoxaparin Sodium (Lovenox) 40 mg SC DAILY [facility] PRN Reason: Protocol Last Admin: 11/20/17 09:40 Dose: 40 mg Famotidine (Pepcid) 20 mg PO BID [facility] Last Admin: 11/20/17 16:56 Dose: 20 mg Glipizide (Glucotrol Xl) 10 mg PO BIDWM [facility] Last Admin: 11/20/17 16:56 Dose: 10 mg Glucagon (Glucagen Diagnostic Kit) 0 mg IM STAT PRN; Protocol PRN Reason: Hypoglycemia Protocol Sodium Chloride (Sodium Chloride 0.9%) 1,000 mls @ 100 mls/hr IV .Q10H [facility] Last Admin: 11/20/17 20:00 Dose: Not Given Vancomycin HCl 1 gm/ Sodium (Chloride) 250 mls @ 166.667 mls/hr IVPB Q12@0500, 1700 [facility] PRN Reason: Protocol Last Admin: 11/21/17 05:31 Dose: 166.667 mls/hr Ceftriaxone Sodium 2 gm/ (Dextrose) 100 mls @ 100 mls/hr IVPB DAILY [facility] PRN Reason: Protocol Ibuprofen (Motrin Tab) 600 mg PO Q8 [facility] Last Admin: 11/21/17 01:00 Dose: 600 mg Insulin Human Regular (Humulin R) 0 units SC ACCU-CHECK [facility] PRN Reason: Protocol Last Admin: 11/21/17 06:46 Dose: Not Given Metformin HCl (Glucophage) 1,000 mg PO BIDWM [facility] Last Admin: 11/20/17 16:56 Dose: 1,000 mg Saccharomyces Boulardii (Florastor) 250 mg PO BID [facility] Last Admin: 11/20/17 16:56 Dose: 250 mg - Labs Labs: 11/19/17 05:25 11/19/17 05:25 PT 11.8 Seconds (9.8-13.1) 11/18/17 10:40 INR 1.1 (0.9-1.2) 11/18/17 10:40 APTT 34.1 Seconds (25.6-37.1) 11/18/17 10:40 - Constitutional Appears: Non-toxic - Eye Exam Eye Exam: Normal appearance - ENT Exam ENT Exam: Mucous Membranes Moist - Respiratory Exam Respiratory Exam: Clear to Ausculation Bilateral, NORMAL BREATHING PATTERN. absent: Respiratory Distress - Cardiovascular Exam Cardiovascular Exam: REGULAR RHYTHM, +S1, +S2 - GI/Abdominal Exam GI & Abdominal Exam: Soft, Normal Bowel Sounds - Extremities Exam Additional comments: left leg in posterior splint; clean, dry - Back Exam Back Exam: NORMAL INSPECTION - Neurological Exam Neurological Exam: Alert, Awake, Oriented x3 - Psychiatric Exam Psychiatric exam: Normal Mood - Skin Additional comments: exposed parts unremarkable Assessment and Plan - Assessment and Plan (Free Text) Assessment: 57 yo M with PMH diabetes mellitus admitted for left lower extremity cellulitis. Plan: # Left ankle swelling and left leg cellulitis - Continue with ceftriaxone and vancomycin (day 4) - Ortho consult; following, recommendations appreciated - Infectious disease consult- pending recs - MRI left lower extremity yest; pending result - wound culture- no organisms seen # NIDDM - Uncontrolled, A1c 10.3 - Metformin 1,000 mg BIDWM; glipizide 10 mg BIDWM - Insulin coverage scale and hypoglycemia protocol - Accucheck ACHS - Diabetic diet - Lipid panel: total 108, LDL 60, HDL 22, Trig 98 - Diabetic diet # Prophylactic measures DVT: Lovenox 40 mg daily AAD: Florastor BID
[2017-11-21] MEDS: cefTRIAXone 2 GM in Dextrose 5% In Water 100 ML IVPB SCH (09:22)
[2017-11-21] MEDS: GlipiZIDE 10 mg SR Tab PO SCH ×2 (09:23→16:31)
[2017-11-21] MEDS: Saccharomyces Boulardi 250 mg Cap PO SCH ×2 (09:23→16:31)
[2017-11-21] MEDS: Enoxaparin 40 mg Syringe SC SCH (09:24)
[2017-11-21] MEDS: Sodium Chloride 0.9% 1,000 ML IV SCH ×2 (10:18→16:30)
--- NOTE | 2017-11-21 10:39 | CP.PCM.CON ---
History of Present Illness - History of Present Illness History of Present Illness: refered for ID eval cellulitis r/o septic left ankle 57 y/o M with PMHx of NIDDM presented to ED c/o L/ankle and L/leg pain. Patient developed left ankle pain after twisting his L/leg around 1 week ago accidentally. Patient has been having increased left ankle pain since then with redness associated to the external malleolus area. Tactile fever and chills at home for the past 2 days. Denies CP, palpitations, nausea, vomiting, SOB, headache, LE numbness or tingling. Found to have temp 102 in ER started on emppiric IV antibiotics Review of Systems - Constitutional Constitutional: As Per HPI - EENT Eyes: absent: As Per HPI, Blind Spots, Blurred Vision, Change in Vision, Decreased Night Vision, Diplopia, Discharge, Dry Eye, Exophthalmos, Floaters, Irritation, Itchy Eyes, Loss of Peripheral Vision, Pain, Photophobia, Requires Corrective Lenses, Sees Flashes, Spots in Vision, Tunnel Vision, Other Visual Disturbances, Loss of Vision, Other Ears: absent: As Per HPI, Decreased Hearing, Ear Discharge, Ear Pain, Tinnitus, Abnormal Hearing, Disequilibrium, Dizziness, Other Nose/Mouth/Throat: absent: As Per HPI, Epistaxis, Nasal Congestion, Nasal Discharge, Nasal Obstruction, Nasal Trauma, Nose Pain, Post Nasal Drip, Sinus Pain, Sinus Pressure, Bleeding Gums, Change in Voice, Dental Pain, Dry Mouth, Dysphagia, Halitosis, Hoarsness, Lip Swelling, Mouth Lesions, Mouth Pain, Odynophagia, Sore Throat, Throat Swelling, Tongue Swelling, Facial Pain, Neck Pain, Neck Mass, Other - Cardiovascular Cardiovascular: absent: As Per HPI, Acrocyanosis, Chest Pain, Chest Pain at Rest , Chest Pain with Activity, Claudication, Diaphoresis, Dyspnea, Dyspnea on Exertion, Edema, Irregular Heart Rhythm, Pain Radiating to Arm/Neck/Jaw, Leg Edema, Leg Ulcers, Lightheadedness, Orthopnea, Palpitations, Paroxysmal Nocturnal Dyspnea, Pedal Edema, Radiating Pain, Rapid Heart Rate, Slow Heart Rate, Syncope, Other - Respiratory Respiratory: absent: As Per HPI, Cough, Dyspnea, Hemoptysis, Dyspnea on Exertion , Wheezing, Snoring, Stridor, Pain on Inspiration, Chest Congestion, Excessive Mucous Production, Change in Mucous Color, Pain with Coughing, Other - Gastrointestinal Gastrointestinal: absent: As Per HPI, Abdominal Pain, Belching, Bloating, Change in Bowel Habits, Change in Stool Character, Coffee Ground Emesis, Constipation, Cramping, Diarrhea, Dyspepsia, Dysphagia, Early Satiety, Excessive Flatus, Fecal Incontinence, Heartburn, Hematemesis, Hematochezia, Loose Stools, Melena, Nausea, Odynophagia, Temesmus, Vomiting, Other - Genitourinary Genitourinary: absent: As Per HPI, Change in Urinary Stream, Difficulty Urinating, Dysuria, Flank Pain, Hematuria, Pyuria, Nocturia, Urinary Incontinence, Urinary Frequency, Urinary Hesitance, Urinary Urgency, Voiding Freq/Small Amts, Freq UTI, Hx Renal/Bladder Calculi, Hx /Renal Surgery, Bladder Distension, Other - Musculoskeletal Musculoskeletal: As Per HPI - Integumentary Integumentary: As Per HPI, Skin Pain - Neurological Neurological: absent: As Per HPI, Abnormal Gait, Abnormal Hearing, Abnormal Movements, Abnormal Speech, Behavioral Changes, Burning Sensations, Confusion, Convulsions, Disequilibrium, Dizziness, Numbness, Focal Weakness, Frequent Falls , Headaches, Lack of Coordination, Loss of Vision, Memory Loss, Paresthesias, Radicular Pain, Restless Legs, Sensory Deficit, Syncope, Tingling, Tremor, Vertigo, Weakness, Other Visual Disturbances, Other - Psychiatric Psychiatric: absent: As Per HPI, Abnormal Sleep Pattern, Anhedonia, Anxiety, Auditory Hallucinations, Behavioral Changes, Change in Appetite, Change in Libido, Confusion, Depression, Difficulty Concentrating, Hallucinations, Homicidal Ideation, Hopelessness, Irritability, Memory Loss, Mood Swings, Panic Attacks, Paranoia, Suicidal Ideation, Visual Hallucinations, Tactile Hallucinations, Other - Endocrine Endocrine: absent: As Per HPI, Change in Body Appearance, Change in Libido, Cold Intolorance, Deepening of Voice, Excessive Sweating, Fatigue, Flushing, Heat Intolorance, Increase in Ring/Shoe/Hat Size, Palpitations, Polydipsia, Polyphagia, Polyuria, Other - Hematologic/Lymphatic Hematologic: absent: As Per HPI, Easy Bleeding, Easy Bruising, Lymphadenopathy, Other Past Patient History - Infectious Disease Hx of Infectious Diseases: None - Past Medical History & Family History Past Medical History?: Yes - Past Social History Drugs: Denies - CARDIAC Hx Cardiac Disorders: No - PULMONARY Hx Respiratory Disorders: No - NEUROLOGICAL Hx Neurological Disorder: No - HEENT Hx HEENT Problems: No - RENAL Hx Chronic Kidney Disease: No - ENDOCRINE/METABOLIC Hx Endocrine Disorders: Yes Hx Diabetes Mellitus Type 2: Yes - HEMATOLOGICAL/ONCOLOGICAL Hx Blood Disorders: No - INTEGUMENTARY Hx Dermatological Problems: Yes - MUSCULOSKELETAL/RHEUMATOLOGICAL Hx Musculoskeletal Disorders: No - GASTROINTESTINAL Hx Gastrointestinal Disorders: No - GENITOURINARY/GYNECOLOGICAL Hx Genitourinary Disorders: No - PSYCHIATRIC Hx Psychophysiologic Disorder: No Hx Substance Use: No - SURGICAL HISTORY Hx Surgeries: No - ANESTHESIA Hx Anesthesia: No Meds Allergies/Adverse Reactions: Allergies Allergy/AdvReac Type Severity Reaction Status Date / Time No Known Allergies Allergy Verified 11/18/17 09:47 - Medications Medications: Current Medications Acetaminophen (Tylenol 325mg Tab) 650 mg PO Q6 PRN PRN Reason: Fever >100.4 F Dextrose (Dextrose 50% Inj) 0 ml IV STAT PRN; Protocol PRN Reason: Hypoglycemia Protocol Dextrose (Glutose 15) 0 gm PO ONCE PRN; Protocol PRN Reason: Hypoglycemia Protocol Enoxaparin Sodium (Lovenox) 40 mg SC DAILY [facility] PRN Reason: Protocol Last Admin: 11/21/17 09:24 Dose: 40 mg Famotidine (Pepcid) 20 mg PO BID [facility] Last Admin: 11/21/17 09:24 Dose: 20 mg Glipizide (Glucotrol Xl) 10 mg PO BIDWM [facility] Last Admin: 11/21/17 09:23 Dose: 10 mg Glucagon (Glucagen Diagnostic Kit) 0 mg IM STAT PRN; Protocol PRN Reason: Hypoglycemia Protocol Sodium Chloride (Sodium Chloride 0.9%) 1,000 mls @ 100 mls/hr IV .Q10H [facility] Last Admin: 11/21/17 10:18 Dose: 100 mls/hr Vancomycin HCl 1 gm/ Sodium (Chloride) 250 mls @ 166.667 mls/hr IVPB Q12@0500, 1700 [facility] PRN Reason: Protocol Last Admin: 11/21/17 05:31 Dose: 166.667 mls/hr Ceftriaxone Sodium 2 gm/ (Dextrose) 100 mls @ 100 mls/hr IVPB DAILY [facility] PRN Reason: Protocol Last Admin: 11/21/17 09:22 Dose: 100 mls/hr Ibuprofen (Motrin Tab) 600 mg PO Q8 [facility] Last Admin: 11/21/17 09:28 Dose: 600 mg Insulin Human Regular (Humulin R) 0 units SC ACCU-CHECK [facility] PRN Reason: Protocol Last Admin: 11/21/17 06:46 Dose: Not Given Metformin HCl (Glucophage) 1,000 mg PO BIDWM [facility] Last Admin: 11/21/17 09:24 Dose: 1,000 mg Saccharomyces Boulardii (Florastor) 250 mg PO BID [facility] Last Admin: 11/21/17 09:23 Dose: 250 mg Physical Exam - Constitutional Appears: Non-toxic, Confused, Chronically Ill - Head Exam Head Exam: NORMOCEPHALIC - Eye Exam Eye Exam: PERRL. absent: Scleral icterus - ENT Exam ENT Exam: Mucous Membranes Dry, Normal External Ear Exam, Normal Oropharynx - Neck Exam Neck exam: Negative for: Lymphadenopathy, Thyromegaly - Respiratory Exam Respiratory Exam: Decreased Breath Sounds, Clear to Auscultation Bilateral - Cardiovascular Exam Cardiovascular Exam: REGULAR RHYTHM, +S1, +S2 - GI/Abdominal Exam GI & Abdominal Exam: Diminished Bowel Sounds, Soft. absent: Tenderness - Rectal Exam Rectal Exam: Deferred - Exam Exam: NORMAL INSPECTION - Extremities Exam Extremities exam: Positive for: pedal edema, tenderness, pedal pulses present. Negative for: calf tenderness Additional comments: left ankle with redness swelling pain and decreaased rom - Back Exam Back exam: absent: CVA tenderness (L), CVA tenderness (R), paraspinal tenderness - Neurological Exam Neurological exam: Alert, CN II-XII Intact, Oriented x3, Reflexes Normal - Psychiatric Exam Psychiatric exam: Normal Mood - Skin Skin Exam: Dry Results - Vital Signs Recent Vital Signs: Last Vital Signs Temp 98.1 F 11/21/17 07:57 Pulse 76 11/21/17 07:57 Resp 20 11/21/17 07:57 BP 137/71 11/21/17 07:57 Pulse Ox 99 11/21/17 07:57 - Labs Result Diagrams: 11/19/17 05:25 11/19/17 05:25 Labs: Laboratory Results - last 24 hr 11/19/17 11/19/17 11/20/17 05:25 21:23 10:56 POC Glucose (mg/dL) 251 H Ur Random Creatinine 92 Urine Total Volume 5.8 Microalb/Creat Ratio 64 H Vancomycin Trough Cycl Citrul Peptide IgG <16 11/20/17 11/20/17 11/20/17 15:53 16:43 22:18 POC Glucose (mg/dL) 137 H 120 H Ur Random Creatinine Urine Total Volume Microalb/Creat Ratio Vancomycin Trough 7.9 Cycl Citrul Peptide IgG 11/21/17 05:29 POC Glucose (mg/dL) 113 H Ur Random Creatinine Urine Total Volume Microalb/Creat Ratio Vancomycin Trough Cycl Citrul Peptide IgG Assessment & Plan (1) Diabetes Status: Acute (2) Left ankle sprain Status: Acute - Assessment and Plan (Free Text) Assessment: r/o septic arthritis left ankle awit MRI and cultures cont empiric rx may need 3 weeks IV rx for septic arthritis
--- NOTE | 2017-11-21 13:54 | MRI ---
MRI right tibia and fibula History: Cellulitis. Comparison: X-ray dated 11/18/2017 Technique: Multi-echo multiplanar sequences were performed through the right tibia and fibula without the use of intravenous contrast. Findings: Reticulation and edema seen within the subcutaneous soft tissues of the mid to distal left tibia and fibula suggestive for an underlying cellulitis. Prominent signal abnormality seen within the myofascial interface of the left extensor hallucis longus muscle belly and peroneal muscle bellies best seen on series 8 image images 26 through 37 as well as series 5, image 9 suggestive for possible intramuscular tearing versus myositis possibly acute inflammatory and or infectious versus additional etiology. Suggestion of some lobulated fluid seen at the lateral aspect of the myofascial interface at the level of the peroneal muscles on series 8, image 36 measuring up to 7 millimeters. Clinical correlation. Please see separate report for evaluation of the ankle. Incidentally noted is a moderate right knee and ankle joint effusions. Clinical correlation. In addition, a partially imaged 1.7 centimeter osseous lesion is seen within the medullary cavity of the distal right tibia as seen on series 5, image 10. This would be better evaluated with plain x-ray. Impression: 1. Reticulation and edema seen within the subcutaneous soft tissues of the mid to distal left tibia and fibula suggestive for an underlying cellulitis. 2. Prominent signal abnormality seen within the myofascial interface of the left extensor hallucis longus muscle belly and peroneal muscle bellies best seen on series 8 image images 26 through 37 as well as series 5, image 9 suggestive for possible intramuscular tearing versus myositis possibly acute inflammatory and or infectious versus additional etiology. Suggestion of some lobulated fluid seen at the lateral aspect of the myofascial interface at the level of the peroneal muscles on series 8, image 36 measuring up to 7 millimeters. Clinical correlation. 3. Incidentally noted is a moderate right knee and ankle joint effusions. Clinical correlation. In addition, a partially imaged 1.7 centimeter osseous lesion is seen within the medullary cavity of the distal right tibia as seen on series 5, image 10. This would be better evaluated with plain x-ray.
--- NOTE | 2017-11-21 14:11 | MRI ---
MRI left ankle History: Ankle pain. Comparison: None available. Technique: Multi-echo multiplanar sequences were performed through the left ankle without and with the use of intravenous contrast. Findings: Prominent reticulation and edema seen overlying the medial and lateral malleolar soft tissues; greater on the medial side. Anterior extensor tendons are preserved. Moderate tenosynovitis of the posterior tibial tendon sheath with inframalleolar tendinopathy and or partial tear. Mild tenosynovitis of the remainder of the medial flexor tendon sheaths. Moderate tenosynovitis of the peroneal tendon sheaths. Anterior and posterior tibiofibular ligaments are preserved. Complete tear of the anterior talofibular ligament. Low-grade sprain of the posterior talofibular ligament. Mild increased signal within the visualized Lisfranc ligament suggestive for a low grade sprain. Degenerative changes noted at the dorsal aspect of the talonavicular joint space. Mild patchy nonspecific reactive bone marrow edema seen at the anterior aspect of the calcaneus. Dorsal calcaneal spurring. Mild distal Achilles tendinopathy. Thickening of the plantar fascia measuring up to 8 millimeters with adjacent bony spurring suggestive for a moderate plantar fascitis. 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 Moderate ankle joint effusion. Reactive edema at the lateral malleolus. Focal area of signal abnormality seen at the medial aspect of the talar dome at the articular surface best seen on series 6, image 15 demonstrating decreased T1 and increased STIR signal. This may represent osteochondral change; however, acute traumatic versus inflammatory and or infectious changes cannot entirely be excluded. Clinical correlation. Additional signal abnormality seen at the mid talus near the talar neck as seen on series 2 and 3, image 8 demonstrating mild patchy decreased T1 signal and increased STIR signal again this is nonspecific however acute inflammatory and or infectious changes versus posttraumatic changes versus additional etiology cannot entirely be excluded. Clinical correlation. Degenerative changes and or osteochondral change at the posterior aspect of the navicular bone. Deltoid ligament is preserved. Impression: 1. Complete tear of the anterior talofibular ligament. 2. Moderate ankle joint effusion. Focal area of signal abnormality seen at the medial aspect of the talar dome at the articular surface best seen on series 6, image 15 demonstrating decreased T1 and increased STIR signal. This may represent osteochondral change; however, acute traumatic versus inflammatory and or infectious changes cannot entirely be excluded. Clinical correlation. Additional signal abnormality seen at the mid talus near the talar neck as seen on series 2 and 3, image 8 demonstrating mild patchy decreased T1 signal and increased STIR signal again this is nonspecific however acute inflammatory and or infectious changes versus posttraumatic changes versus additional etiology cannot entirely be excluded. Clinical correlation. 3. Prominent reticulation and edema seen overlying the medial and lateral malleolar soft tissues; greater on the medial side. 4. Moderate tenosynovitis of the posterior tibial tendon sheath with inframalleolar tendinopathy and or partial tear. 5. Mild tenosynovitis of the remainder of the medial flexor tendon sheaths. 6. Moderate tenosynovitis of the peroneal tendon sheaths. 7. Low-grade sprain of the posterior talofibular ligament. 8. Mild increased signal within the visualized Lisfranc ligament suggestive for a low grade sprain. 9. Degenerative changes noted at the dorsal aspect of the talonavicular joint space. 10. Mild patchy nonspecific reactive bone marrow edema seen at the anterior aspect of the calcaneus. Additional reactive edema seen at the lateral malleolus. 11. Dorsal calcaneal spurring. 12. Mild distal Achilles tendinopathy. 13. Thickening of the plantar fascia measuring up to 8 millimeters with adjacent bony spurring suggestive for a moderate plantar fascitis. 14. 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 15. Degenerative changes and or osteochondral change at the posterior aspect of the navicular bone.
--- NOTE | 2017-11-21 15:00 | CP.PCM.PN ---
Subjective - Date & Time of Evaluation Date of Evaluation: 11/21/17 Time of Evaluation: 14:00 - Subjective Subjective: Patient seen and examined OOB working with PT. Pain well controlled. No new complaints Objective - Vital Signs/Intake and Output Vital Signs (last 24 hours): Temp Pulse Resp BP Pulse Ox 98.1 F 76 20 137/71 99 11/21/17 07:57 11/21/17 07:57 11/21/17 07:57 11/21/17 07:57 11/21/17 07:57 - Medications Medications: Current Medications Acetaminophen (Tylenol 325mg Tab) 650 mg PO Q6 PRN PRN Reason: Fever >100.4 F Dextrose (Dextrose 50% Inj) 0 ml IV STAT PRN; Protocol PRN Reason: Hypoglycemia Protocol Dextrose (Glutose 15) 0 gm PO ONCE PRN; Protocol PRN Reason: Hypoglycemia Protocol Enoxaparin Sodium (Lovenox) 40 mg SC DAILY [facility] PRN Reason: Protocol Last Admin: 11/21/17 09:24 Dose: 40 mg Famotidine (Pepcid) 20 mg PO BID [facility] Last Admin: 11/21/17 09:24 Dose: 20 mg Glipizide (Glucotrol Xl) 10 mg PO BIDWM [facility] Last Admin: 11/21/17 09:23 Dose: 10 mg Glucagon (Glucagen Diagnostic Kit) 0 mg IM STAT PRN; Protocol PRN Reason: Hypoglycemia Protocol Sodium Chloride (Sodium Chloride 0.9%) 1,000 mls @ 100 mls/hr IV .Q10H [facility] Last Admin: 11/21/17 10:18 Dose: 100 mls/hr Vancomycin HCl 1 gm/ Sodium (Chloride) 250 mls @ 166.667 mls/hr IVPB Q12@0500, 1700 [facility] PRN Reason: Protocol Last Admin: 11/21/17 05:31 Dose: 166.667 mls/hr Ceftriaxone Sodium 2 gm/ (Dextrose) 100 mls @ 100 mls/hr IVPB DAILY [facility] PRN Reason: Protocol Last Admin: 11/21/17 09:22 Dose: 100 mls/hr Ibuprofen (Motrin Tab) 600 mg PO Q8 [facility] Last Admin: 11/21/17 09:28 Dose: 600 mg Insulin Human Regular (Humulin R) 0 units SC ACCU-CHECK [facility] PRN Reason: Protocol Last Admin: 11/21/17 12:27 Dose: 2 units Metformin HCl (Glucophage) 1,000 mg PO BIDWM [facility] Last Admin: 11/21/17 09:24 Dose: 1,000 mg Saccharomyces Boulardii (Florastor) 250 mg PO BID [facility] Last Admin: 11/21/17 09:23 Dose: 250 mg - Labs Labs: 11/19/17 05:25 11/19/17 05:25 PT 11.8 Seconds (9.8-13.1) 11/18/17 10:40 INR 1.1 (0.9-1.2) 11/18/17 10:40 APTT 34.1 Seconds (25.6-37.1) 11/18/17 10:40 - Extremities Exam Additional comments: LLE: pain with palpation laterally at ATFL region and distal syndesmosis, no tenderness medially, anterior lower leg red patch without change in size according to measurement markings placed, Gross NVI distally, motor intact EHL/ FHL/TA/G, compartments soft and NT b/l. Assessment and Plan (1) Left ankle sprain Assessment & Plan: -MRI images and report reviewed revealing an acute complete ATFL tear, no evidence of syndesmosis disruption -PT/OT WBAT with crutches -change posterior splint to aircast splint -clear to discharge from ortho standpoint -f/u in family practice clinic -case and plan d/w Dr. Recinos in agreement Status: Acute
[2017-11-22] MEDS: Sodium Chloride 0.9% 1,000 ML IV SCH ×3 (02:00→22:23)
--- NOTE | 2017-11-22 07:03 | CP.PCM.PN ---
Subjective - Date & Time of Evaluation Date of Evaluation: 11/22/17 Time of Evaluation: 07:05 - Subjective Subjective: Pt seen and evaluated at bedside this morning; no acute events overnight; states he cannot put weight on his foot. Continues to state he has pain that is alleviated with medication but it returns when medication wears off. Objective - Vital Signs/Intake and Output Vital Signs (last 24 hours): Temp Pulse Resp BP Pulse Ox 98.5 F 76 19 150/69 98 11/22/17 00:00 11/22/17 00:00 11/22/17 00:00 11/22/17 00:00 11/22/17 00:00 - Medications Medications: Current Medications Acetaminophen (Tylenol 325mg Tab) 650 mg PO Q6 PRN PRN Reason: Fever >100.4 F Dextrose (Dextrose 50% Inj) 0 ml IV STAT PRN; Protocol PRN Reason: Hypoglycemia Protocol Dextrose (Glutose 15) 0 gm PO ONCE PRN; Protocol PRN Reason: Hypoglycemia Protocol Enoxaparin Sodium (Lovenox) 40 mg SC DAILY [facility] PRN Reason: Protocol Last Admin: 11/21/17 09:24 Dose: 40 mg Famotidine (Pepcid) 20 mg PO BID [facility] Last Admin: 11/21/17 16:31 Dose: 20 mg Glipizide (Glucotrol Xl) 10 mg PO BIDWM [facility] Last Admin: 11/21/17 16:31 Dose: 10 mg Glucagon (Glucagen Diagnostic Kit) 0 mg IM STAT PRN; Protocol PRN Reason: Hypoglycemia Protocol Sodium Chloride (Sodium Chloride 0.9%) 1,000 mls @ 100 mls/hr IV .Q10H [facility] Last Admin: 11/22/17 02:00 Dose: Not Given Vancomycin HCl 1 gm/ Sodium (Chloride) 250 mls @ 166.667 mls/hr IVPB Q12@0500, 1700 [facility] PRN Reason: Protocol Last Admin: 11/22/17 05:59 Dose: 166.667 mls/hr Ceftriaxone Sodium 2 gm/ (Dextrose) 100 mls @ 100 mls/hr IVPB DAILY [facility] PRN Reason: Protocol Last Admin: 11/21/17 09:22 Dose: 100 mls/hr Ibuprofen (Motrin Tab) 600 mg PO Q8 [facility] Last Admin: 11/22/17 00:39 Dose: 600 mg Insulin Human Regular (Humulin R) 0 units SC ACCU-CHECK [facility] PRN Reason: Protocol Last Admin: 11/22/17 00:00 Dose: Not Given Metformin HCl (Glucophage) 1,000 mg PO BIDWM [facility] Last Admin: 11/21/17 16:31 Dose: 1,000 mg Saccharomyces Boulardii (Florastor) 250 mg PO BID [facility] Last Admin: 11/21/17 16:31 Dose: 250 mg - Labs Labs: 11/19/17 05:25 11/19/17 05:25 PT 11.8 Seconds (9.8-13.1) 11/18/17 10:40 INR 1.1 (0.9-1.2) 11/18/17 10:40 APTT 34.1 Seconds (25.6-37.1) 11/18/17 10:40 - Constitutional Appears: No Acute Distress - Head Exam Head Exam: NORMAL INSPECTION - Eye Exam Eye Exam: Normal appearance - ENT Exam ENT Exam: Mucous Membranes Moist - Respiratory Exam Respiratory Exam: Clear to Ausculation Bilateral, NORMAL BREATHING PATTERN - Cardiovascular Exam Cardiovascular Exam: REGULAR RHYTHM, +S1, +S2 - GI/Abdominal Exam GI & Abdominal Exam: Soft, Normal Bowel Sounds - Extremities Exam Extremities Exam: absent: Calf Tenderness Additional comments: left extremity in aircast redness unchanged - Back Exam Back Exam: NORMAL INSPECTION - Neurological Exam Neurological Exam: Alert, Awake - Psychiatric Exam Psychiatric exam: Normal Mood - Skin Additional comments: redness on LLE unchanged Assessment and Plan - Assessment and Plan (Free Text) Assessment: 57 yo M with PMH diabetes mellitus admitted for left lower extremity cellulitis. Plan: # Left ankle swelling - MRI showed acute complete ATFL tear; pt in aircast splint as per ortho, no other intervention as per ortho - Continue with ceftriaxone and vancomycin (day 5) - Infectious disease consult- pending further recs - consider steroids # NIDDM - Uncontrolled, A1c 10.3 - Metformin 1,000 mg BIDWM; glipizide 10 mg BIDWM - Insulin coverage scale and hypoglycemia protocol - Accucheck ACHS - Diabetic diet - Lipid panel: total 108, LDL 60, HDL 22, Trig 98 - Diabetic diet # Prophylactic measures DVT: Lovenox 40 mg daily AAD: Florastor BID
[2017-11-22] MEDS: GlipiZIDE 10 mg SR Tab PO SCH ×2 (08:19→17:07)
[2017-11-22] MEDS: Enoxaparin 40 mg Syringe SC SCH (08:19)
[2017-11-22] MEDS: Insulin Regular 100 units/ml SC SCH ×5 (08:20→22:23)
[2017-11-22] MEDS: Saccharomyces Boulardi 250 mg Cap PO SCH ×2 (08:20→17:06)
[2017-11-22] MEDS: cefTRIAXone 2 GM in Dextrose 5% In Water 100 ML IVPB SCH (08:22)
[2017-11-22 08:40] VITALS: TEMP 97.9; O2SAT 99
--- NOTE | 2017-11-22 14:47 | CP.PCM.PN ---
Subjective - Date & Time of Evaluation Date of Evaluation: 11/22/17 Time of Evaluation: 14:47 - Subjective Subjective: Patient complaining of right knee pain now when walking around. He says he has pain when he walks and when he bends it fully. His left ankle is feeling better. still a little pain on the inside of his pain. Review of Systems - Review of Systems All systems: reviewed and no additional remarkable complaints except Review of Systems: no fever - Musculoskeletal Musculoskeletal: As Par HPI - Integumentary Integumentary: As Per HPI - Neurological Neurological: As Per HPI Objective - Vital Signs/Intake and Output Vital Signs (last 24 hours): Temp Pulse Resp BP Pulse Ox 97.9 F 66 20 149/77 99 11/22/17 09:00 11/22/17 09:00 11/22/17 09:00 11/22/17 09:00 11/22/17 09:00 - Medications Medications: Current Medications Acetaminophen (Tylenol 325mg Tab) 650 mg PO Q6 PRN PRN Reason: Fever >100.4 F Dextrose (Dextrose 50% Inj) 0 ml IV STAT PRN; Protocol PRN Reason: Hypoglycemia Protocol Dextrose (Glutose 15) 0 gm PO ONCE PRN; Protocol PRN Reason: Hypoglycemia Protocol Enoxaparin Sodium (Lovenox) 40 mg SC DAILY REPLACED BY [facility] PRN Reason: Protocol Last Admin: 11/22/17 08:19 Dose: 40 mg Famotidine (Pepcid) 20 mg PO BID REPLACED BY [facility] Last Admin: 11/22/17 08:20 Dose: 20 mg Glipizide (Glucotrol Xl) 10 mg PO BIDWM REPLACED BY [facility] Last Admin: 11/22/17 08:19 Dose: 10 mg Glucagon (Glucagen Diagnostic Kit) 0 mg IM STAT PRN; Protocol PRN Reason: Hypoglycemia Protocol Sodium Chloride (Sodium Chloride 0.9%) 1,000 mls @ 100 mls/hr IV .Q10H REPLACED BY [facility] Last Admin: 11/22/17 12:09 Dose: Not Given Vancomycin HCl 1 gm/ Sodium (Chloride) 250 mls @ 166.667 mls/hr IVPB Q12@0500, 1700 REPLACED BY [facility] PRN Reason: Protocol Last Admin: 11/22/17 05:59 Dose: 166.667 mls/hr Ceftriaxone Sodium 2 gm/ (Dextrose) 100 mls @ 100 mls/hr IVPB DAILY REPLACED BY [facility] PRN Reason: Protocol Last Admin: 11/22/17 08:22 Dose: 100 mls/hr Ibuprofen (Motrin Tab) 600 mg PO Q8 REPLACED BY [facility] Last Admin: 11/22/17 08:21 Dose: 600 mg Insulin Human Regular (Humulin R) 0 units SC ACCU-CHECK REPLACED BY [facility] PRN Reason: Protocol Last Admin: 11/22/17 12:54 Dose: 2 units Metformin HCl (Glucophage) 1,000 mg PO BIDWM REPLACED BY [facility] Last Admin: 11/22/17 08:20 Dose: 1,000 mg Saccharomyces Boulardii (Florastor) 250 mg PO BID REPLACED BY [facility] Last Admin: 11/22/17 08:20 Dose: 250 mg - Labs Labs: 11/19/17 05:25 11/19/17 05:25 PT 11.8 Seconds (9.8-13.1) 11/18/17 10:40 INR 1.1 (0.9-1.2) 11/18/17 10:40 APTT 34.1 Seconds (25.6-37.1) 11/18/17 10:40 - Constitutional Appears: Well, No Acute Distress - Head Exam Head Exam: ATRAUMATIC - Neck Exam Neck Exam: Full ROM, Normal Inspection - Respiratory Exam Respiratory Exam: NORMAL BREATHING PATTERN - Cardiovascular Exam Additional comments: DP/PT pulses - Extremities Exam Additional comments: calves soft NT neg homans - Neurological Exam Neurological Exam: Alert, Awake, Oriented x3 Neuro motor strength exam: Left Lower Extremity: 5, Right Lower Extremity: 5 - Psychiatric Exam Psychiatric exam: Normal Affect, Normal Mood - Skin Skin Exam: Dry, Intact, Warm Additional comments: Lateral ankle: swelling improving, no erythema, medial lower leg erythematous and warm. Appears excoriated, but patient denies itching or scratching. Right knee: moderate to large joint effusion. No erythema,not warm, denies history of gout. Skin intact, pain with knee ROM >100 degrees calves soft NT neg homans, Neg varus valgus stress, guards with john paul, no crepitus, neg mcmurrays Assessment and Plan (1) Sprain of anterior talofibular ligament of left ankle Assessment & Plan: aircast WBAT unclear cellulitis to right leg this is not over ankle joint, minimal pain with ankle ROM, no septic arthritis suspected clinically abx per ID PT/OT d/w Dr. Recinos, agrees with above Status: Acute (2) Effusion, right knee Assessment & Plan: xrays right knee no gross instability Status: Acute
--- NOTE | 2017-11-22 15:48 | RAD ---
PROCEDURE: Right Knee Radiographs. HISTORY: knee effusion COMPARISON: None. FINDINGS: BONES: . No fracture. JOINTS: Tibial spine spurring compatible with osteoarthritis. JOINT EFFUSION: Large joint effusion suggested OTHER FINDINGS: None. IMPRESSION: Large joint effusion. No fracture or lytic lesion. Osteoarthrosis
--- NOTE | 2017-11-22 16:47 | CP.PCM.PN ---
Subjective - Date & Time of Evaluation Date of Evaluation: 11/22/17 Time of Evaluation: 09:00 - Subjective Subjective: doing well all cultures neg healing slowly can be d/c'd on oral antibiotics with follow up by Ortho Objective - Vital Signs/Intake and Output Vital Signs (last 24 hours): Temp Pulse Resp BP Pulse Ox 97.7 F 73 18 147/78 99 11/22/17 16:01 11/22/17 16:01 11/22/17 16:01 11/22/17 16:01 11/22/17 16:01 - Medications Medications: Current Medications Acetaminophen (Tylenol 325mg Tab) 650 mg PO Q6 PRN PRN Reason: Fever >100.4 F Dextrose (Dextrose 50% Inj) 0 ml IV STAT PRN; Protocol PRN Reason: Hypoglycemia Protocol Dextrose (Glutose 15) 0 gm PO ONCE PRN; Protocol PRN Reason: Hypoglycemia Protocol Enoxaparin Sodium (Lovenox) 40 mg SC DAILY [facility] PRN Reason: Protocol Last Admin: 11/22/17 08:19 Dose: 40 mg Famotidine (Pepcid) 20 mg PO BID [facility] Last Admin: 11/22/17 08:20 Dose: 20 mg Glipizide (Glucotrol Xl) 10 mg PO BIDWM [facility] Last Admin: 11/22/17 08:19 Dose: 10 mg Glucagon (Glucagen Diagnostic Kit) 0 mg IM STAT PRN; Protocol PRN Reason: Hypoglycemia Protocol Sodium Chloride (Sodium Chloride 0.9%) 1,000 mls @ 100 mls/hr IV .Q10H [facility] Last Admin: 11/22/17 12:09 Dose: Not Given Vancomycin HCl 1 gm/ Sodium (Chloride) 250 mls @ 166.667 mls/hr IVPB Q12@0500, 1700 [facility] PRN Reason: Protocol Last Admin: 11/22/17 05:59 Dose: 166.667 mls/hr Ceftriaxone Sodium 2 gm/ (Dextrose) 100 mls @ 100 mls/hr IVPB DAILY [facility] PRN Reason: Protocol Last Admin: 11/22/17 08:22 Dose: 100 mls/hr Ibuprofen (Motrin Tab) 600 mg PO Q8 [facility] Last Admin: 11/22/17 08:21 Dose: 600 mg Insulin Human Regular (Humulin R) 0 units SC ACCU-CHECK [facility] PRN Reason: Protocol Last Admin: 11/22/17 12:54 Dose: 2 units Metformin HCl (Glucophage) 1,000 mg PO BIDWM [facility] Last Admin: 11/22/17 08:20 Dose: 1,000 mg Saccharomyces Boulardii (Florastor) 250 mg PO BID [facility] Last Admin: 11/22/17 08:20 Dose: 250 mg - Labs Labs: 11/19/17 05:25 11/19/17 05:25 PT 11.8 Seconds (9.8-13.1) 11/18/17 10:40 INR 1.1 (0.9-1.2) 11/18/17 10:40 APTT 34.1 Seconds (25.6-37.1) 11/18/17 10:40 - Constitutional Appears: Non-toxic, Chronically Ill - Head Exam Head Exam: NORMOCEPHALIC - Eye Exam Eye Exam: PERRL. absent: Scleral icterus - ENT Exam ENT Exam: Mucous Membranes Dry - Neck Exam Neck Exam: absent: Lymphadenopathy - Respiratory Exam Respiratory Exam: Decreased Breath Sounds - Cardiovascular Exam Cardiovascular Exam: REGULAR RHYTHM - GI/Abdominal Exam GI & Abdominal Exam: Soft. absent: Tenderness - Rectal Exam Rectal Exam: Deferred - Exam Exam: NORMAL INSPECTION - Extremities Exam Extremities Exam: absent: Pedal Edema - Back Exam Back Exam: absent: CVA tenderness (L), CVA tenderness (R) Assessment and Plan (1) Diabetes Status: Acute (2) Left ankle sprain Status: Acute - Assessment and Plan (Free Text) Assessment: doing well no signs of septic arthritis cellulitis minimal can d/c on orals with follow up by ortho
[2017-11-23] MEDS: Sodium Chloride 0.9% 1,000 ML IV SCH ×2 (00:05→08:42)
[2017-11-23] MEDS: GlipiZIDE 10 mg SR Tab PO SCH (08:39)
[2017-11-23] MEDS: Saccharomyces Boulardi 250 mg Cap PO SCH (08:39)
[2017-11-23] MEDS: Enoxaparin 40 mg Syringe SC SCH (08:40)
[2017-11-23] MEDS: Insulin Regular 100 units/ml SC SCH ×2 (08:40→12:54)
[2017-11-23] MEDS ORDERED: cefTRIAXone 2 GM in Sodium Chloride 0.9% 100 ML IVPB SCH (09:00)
--- NOTE | 2017-11-23 09:29 | CP.PCM.PN ---
Subjective - Date & Time of Evaluation Date of Evaluation: 11/23/17 Time of Evaluation: 09:27 - Subjective Subjective: Patient states he feels better today in both right knee and left ankle. No new complaints. Review of Systems - Review of Systems All systems: reviewed and no additional remarkable complaints except - Constitutional Additional comments: no fever/chills - Musculoskeletal Musculoskeletal: As Par HPI - Integumentary Integumentary: UNREMARKABLE - Neurological Neurological: UNREMARKABLE Objective - Vital Signs/Intake and Output Vital Signs (last 24 hours): Temp Pulse Resp BP Pulse Ox 97.9 F 61 18 122/67 99 11/23/17 08:01 11/23/17 08:01 11/23/17 08:01 11/23/17 08:01 11/23/17 08:01 - Medications Medications: Current Medications Acetaminophen (Tylenol 325mg Tab) 650 mg PO Q6 PRN PRN Reason: Fever >100.4 F Dextrose (Dextrose 50% Inj) 0 ml IV STAT PRN; Protocol PRN Reason: Hypoglycemia Protocol Dextrose (Glutose 15) 0 gm PO ONCE PRN; Protocol PRN Reason: Hypoglycemia Protocol Enoxaparin Sodium (Lovenox) 40 mg SC DAILY [facility] PRN Reason: Protocol Last Admin: 11/23/17 08:40 Dose: 40 mg Famotidine (Pepcid) 20 mg PO BID [facility] Last Admin: 11/23/17 08:41 Dose: 20 mg Glipizide (Glucotrol Xl) 10 mg PO BIDWM [facility] Last Admin: 11/23/17 08:39 Dose: 10 mg Glucagon (Glucagen Diagnostic Kit) 0 mg IM STAT PRN; Protocol PRN Reason: Hypoglycemia Protocol Sodium Chloride (Sodium Chloride 0.9%) 1,000 mls @ 100 mls/hr IV .Q10H [facility] Last Admin: 11/23/17 08:42 Dose: Not Given Vancomycin HCl 1 gm/ Sodium (Chloride) 250 mls @ 166.667 mls/hr IVPB Q12@0500, 1700 [facility] PRN Reason: Protocol Last Admin: 11/23/17 05:29 Dose: 166.667 mls/hr Ceftriaxone Sodium 2 gm/ (Sodium Chloride) 100 mls @ 100 mls/hr IVPB DAILY [facility] PRN Reason: Protocol Last Admin: 11/23/17 08:43 Dose: 100 mls/hr Ibuprofen (Motrin Tab) 600 mg PO Q8 [facility] Last Admin: 11/23/17 08:40 Dose: 600 mg Insulin Human Regular (Humulin R) 0 units SC ACCU-CHECK [facility] PRN Reason: Protocol Last Admin: 11/23/17 08:40 Dose: 2 units Metformin HCl (Glucophage) 1,000 mg PO BIDWM [facility] Last Admin: 11/23/17 08:39 Dose: 1,000 mg Prednisone (Prednisone Tab) 40 mg PO DAILY [facility] Last Admin: 11/23/17 08:41 Dose: 40 mg Saccharomyces Boulardii (Florastor) 250 mg PO BID [facility] Last Admin: 11/23/17 08:39 Dose: 250 mg - Labs Labs: 11/19/17 05:25 11/19/17 05:25 PT 11.8 Seconds (9.8-13.1) 11/18/17 10:40 INR 1.1 (0.9-1.2) 11/18/17 10:40 APTT 34.1 Seconds (25.6-37.1) 11/18/17 10:40 - Constitutional Appears: Well, No Acute Distress - Head Exam Head Exam: ATRAUMATIC - Neck Exam Neck Exam: Full ROM, Normal Inspection - Respiratory Exam Respiratory Exam: NORMAL BREATHING PATTERN - Cardiovascular Exam Additional comments: +DP/PT pulses bilaterally - Extremities Exam Additional comments: R knee: swelling slightly improved, ROM full without pain today, still a little stiff at full flexion calves soft NT neg homans BLE Left ankle: improving today. Less red, less warm. aircast intact sensation intact, no drainage Assessment and Plan (1) Sprain of anterior talofibular ligament of left ankle Assessment & Plan: aircast WBAT cellulitis improving, PO antibiotics as per DR. Nolvia michelle stable for d/c home f/u Dr. Recinos approx 10 days call for appointment Status: Acute (2) Effusion, right knee Assessment & Plan: xrays reviewed, mild DJD, possible exacerbation/synovitis pain improved today no intervention indicated, no erythema/redness, patient can follow up as outpatient Status: Acute Radiology Interpretation - Radiology Interpretation #2 Interpretation: Patient Name / ID : JAMIL FLORES / [id number] Exam Date : 11/22/2017 15:21:48 ( Approved ) Study Comment : Sex / Age : M / 57Y Creator : Sofie Mills Dictator : Sofie Mills Surgery Scheduling Coordinator : Human Relations Professor : Sofie Mills Approver2 : Report Date : 11/22/2017 15:41:53 My Comment : PROCEDURE: Right Knee Radiographs. HISTORY: knee effusion COMPARISON: None. FINDINGS: BONES: . No fracture. JOINTS: Tibial spine spurring compatible with osteoarthritis. JOINT EFFUSION: Large joint effusion suggested OTHER FINDINGS: None. IMPRESSION: Large joint effusion. No fracture or lytic lesion. Osteoarthrosis
[2017-11-23 11:13] VITALS: BP 122/67; PULSE 61; RESP 18
--- NOTE | 2017-11-23 11:13 | CP.PCM.DIS ---
Provider - Provider Date of Admission: 11/18/17 15:32 Attending physician: Sammie Turner MD Primary care physician: none Consults: Orthopedics Infectious Disease Time Spent in preparation of Discharge (in minutes): 35 Diagnosis - Discharge Diagnosis (1) Left ankle sprain Status: Acute (2) Sprain of anterior talofibular ligament of left ankle Status: Acute Hospital Course - Lab Results Lab Results: Micro Results 11/18/17 16:00 Blood Blood Culture - Preliminary NO GROWTH AFTER 4 DAYS 11/18/17 15:30 Blood Blood Culture - Preliminary NO GROWTH AFTER 4 DAYS 11/18/17 18:01 Synovial Fluid Gram Stain - Final Most Recent Lab Values WBC 4.9 K/uL (4.8-10.8) 11/19/17 05:25 RBC 4.77 Mil/uL (4.40-5.90) 11/19/17 05:25 Hgb 12.5 g/dL (12.0-18.0) 11/19/17 05:25 Hct 36.9 % (35.0-51.0) 11/19/17 05:25 MCV 77.4 fl (80.0-94.0) L 11/19/17 05:25 MCH 26.3 pg (27.0-31.0) L 11/19/17 05:25 MCHC 34.0 g/dL (33.0-37.0) 11/19/17 05:25 RDW 12.8 % (11.5-14.5) 11/19/17 05:25 Plt Count 247 K/uL (130-400) 11/19/17 05:25 MPV 8.6 fl (7.2-11.7) 11/19/17 05:25 Neut % (Auto) 70.3 % (50.0-75.0) 11/19/17 05:25 Lymph % (Auto) 17.0 % (20.0-40.0) L 11/19/17 05:25 [place] % (Auto) 11.6 % (0.0-10.0) H 11/19/17 05:25 Eos % (Auto) 0.6 % (0.0-4.0) 11/19/17 05:25 Baso % (Auto) 0.5 % (0.0-2.0) 11/19/17 05:25 Neut # (Auto) 3.4 K/uL (1.8-7.0) 11/19/17 05:25 Lymph # (Auto) 0.8 K/uL (1.0-4.3) L 11/19/17 05:25 [place] # (Auto) 0.6 K/uL (0.0-0.8) 11/19/17 05:25 Eos # (Auto) 0.0 K/uL (0.0-0.7) 11/19/17 05:25 Baso # (Auto) 0.0 K/uL (0.0-0.2) 11/19/17 05:25 ESR 69 mm/hr (0-20) H 11/18/17 10:40 PT 11.8 Seconds (9.8-13.1) 11/18/17 10:40 INR 1.1 (0.9-1.2) 11/18/17 10:40 APTT 34.1 Seconds (25.6-37.1) 11/18/17 10:40 pO2 61 mm/Hg (30-55) H 11/18/17 15:41 VBG pH 7.48 (7.32-7.43) H 11/18/17 15:41 VBG pCO2 37 mmHg (40-60) L 11/18/17 15:41 VBG HCO3 27.9 mmol/L 11/18/17 15:41 VBG Total CO2 28.7 mmol/L (22-28) H 11/18/17 15:41 VBG O2 Sat (Calc) 96.6 % (40-65) H 11/18/17 15:41 VBG Base Excess 4.0 mmol/L (0.0-2.0) H 11/18/17 15:41 VBG Potassium 4.1 mmol/L (3.6-5.2) 11/18/17 15:41 Sodium 134.0 mmol/L (132-148) 11/18/17 15:41 Chloride 104.0 mmol/L (98-107) 11/18/17 15:41 Glucose 179 mg/dL (75-110) H 11/18/17 15:41 Lactate 1.2 mmol/L (0.7-2.1) 11/18/17 15:41 FiO2 21.0 % 11/18/17 15:41 Sodium 139 mmol/l (132-148) 11/19/17 05:25 Potassium 4.2 MMOL/L (3.6-5.0) 11/19/17 05:25 Chloride 103 mmol/L (98-107) 11/19/17 05:25 Carbon Dioxide 23 mmol/L (22-30) 11/19/17 05:25 Anion Gap 17 (10-20) 11/19/17 05:25 BUN 12 mg/dl (9-20) 11/19/17 05:25 Creatinine 0.6 mg/dl (0.8-1.5) L 11/19/17 05:25 Est GFR ( Amer) > 60 11/19/17 05:25 Est GFR (Non-Af Amer) > 60 11/19/17 05:25 POC Glucose (mg/dL) 202 mg/dL (65-110) H 11/23/17 05:33 Random Glucose 202 mg/dL (75-110) H 11/19/17 05:25 Hemoglobin A1c 10.3 % (4.2-6.5) H 11/18/17 19:00 Uric Acid 2.5 mg/Dl (3.5-8.5) L 11/21/17 12:10 Calcium 8.5 mg/dL (8.4-10.2) 11/19/17 05:25 Total Bilirubin 0.5 mg/dl (0.2-1.3) 11/18/17 10:40 AST 33 U/L (17-59) 11/18/17 10:40 ALT 37 U/L (21-72) 11/18/17 10:40 Alkaline Phosphatase 144 U/L (38-126) H 11/18/17 10:40 C-Reactive Protein 143.10 mg/L (0.0-9.9) H 11/18/17 10:40 Total Protein 8.0 G/DL (6.3-8.2) 11/18/17 10:40 Albumin 3.8 g/dL (3.5-5.0) 11/18/17 10:40 Globulin 4.1 gm/dL (2.2-3.9) H 11/18/17 10:40 Albumin/Globulin Ratio 0.9 (1.0-2.1) L 11/18/17 10:40 Triglycerides 98 mg/DL (0-149) 11/19/17 12:10 Cholesterol 108 mg/dL (0-199) 11/19/17 12:10 LDL Cholesterol Direct 60 mg/dL (0-129) 11/19/17 12:10 HDL Cholesterol 22 MG/DL (30-70) L 11/19/17 12:10 Procalcitonin 0.16 NG/ML (0.19-0.49) L 11/18/17 19:00 Venous Blood Potassium 4.1 mmol/L (3.6-5.2) 11/18/17 15:41 Urine Color Yellow (YELLOW) 11/18/17 04:00 Urine Clarity Slighty-cloudy (Clear) 11/18/17 04:00 Urine pH 6.0 (5.0-8.0) 11/18/17 04:00 Ur Specific [place] 1.022 (1.003-1.030) 11/18/17 04:00 Urine Protein 30 mg/dL (NEGATIVE) 11/18/17 04:00 Urine Glucose (UA) >=500 mg/dL (Normal) 11/18/17 04:00 Urine Ketones Negative mg/dL (NEGATIVE) 11/18/17 04:00 Urine Blood Negative (NEGATIVE) 11/18/17 04:00 Urine Nitrate Negative (NEGATIVE) 11/18/17 04:00 Urine Bilirubin Negative (NEGATIVE) 11/18/17 04:00 Urine Urobilinogen 0.2-1.0 mg/dL (0.2-1.0) 11/18/17 04:00 Ur Leukocyte Esterase Neg Timothy/uL (Negative) 11/18/17 04:00 Urine RBC (Auto) 4 /hpf (0-3) H 11/18/17 04:00 Urine Microscopic WBC 2 /hpf (0-5) 11/18/17 04:00 Urine Bacteria Rare (<OCC) 11/18/17 04:00 Ur Random Creatinine 92 mg/dL (20-370) 11/19/17 21:23 Urine Total Volume 5.8 mg/dL 11/19/17 21:23 Microalb/Creat Ratio 64 (<30) H 11/19/17 21:23 Fluid Type Synovial fluid 11/18/17 18:30 Synovial WBC 1926.0 /mm3 (0.0-150.0) H 11/18/17 18:30 Synovial RBC 4455.0 /mm3 (0.0-0.0) H 11/18/17 18:30 Synovial Neutrophils 44.0 % (0-0) H 11/18/17 18:30 Synovial Lymphocytes 41.0 % (0-0) H 11/18/17 18:30 Synov Monos/Macrophage 15 % (0-0) H 11/18/17 18:30 Synovial Fluid Comment Brownish 11/18/17 18:30 Vancomycin Trough 7.9 ug/mL (5.0-10.0) 11/20/17 16:43 Cycl Citrul Peptide IgG <16 Units (<20) 11/19/17 05:25 - Hospital Course Hospital Course: 57 yo with PMH NIDDM admitted for suspected septic arthritis of L ankle, presented as febrile, which has since been ruled out after fluid aspiration did now show any organisms. Blood cultures did not grow any organisms. He was evaluated by ortho team (Dr. Recinos), stated this is ankle sprain and no acute intervention to be done. Pt had area of erythema at L lateral malleolus that was suspected cellulitis; pt received IV antibiotics and prednisone with some improvement noted and no worsening of symptoms/erythema. He was evaluated by physical therapy as well, and discharge recommendation was home. He has been afebrile since the day after admission, and will be discharged on PO antibiotics (keflex and bactrim for 7 days) as per ID consult Dr. De Souza, and 2 more days of prednisone. Can take ibuprofen for pain - discussed dosages with patient and his family member, advised to take ibuprofen with food as directed ( 600 mg every 6 hrs if needed, no more than 2400mg a day, as he has been receiving in the hospital). Patient and family member verbalized understanding. He has a follow up appointment at [facility] on 11/30/17. Discharge Exam - Head Exam Head Exam: ATRAUMATIC - Eye Exam Eye Exam: EOMI, Normal appearance - ENT Exam ENT Exam: Mucous Membranes Moist - Respiratory Exam Respiratory Exam: Clear to PA & Lateral, NORMAL BREATHING PATTERN - Cardiovascular Exam Cardiovascular Exam: REGULAR RHYTHM, +S1, +S2 - GI/Abdominal Exam GI & Abdominal Exam: Normal Bowel Sounds, Soft. absent: Tenderness - Extremities Exam Additional comments: full ROM at knees bilaterally no calf tenderness left ankle: redness slightly improved, no drainage Discharge Plan - Discharge Medications Prescriptions: Cephalexin [cephalexin] 500 mg PO Q12 #14 cap predniSONE [predniSONE Tab] 20 mg PO DAILY #2 tab Sulfamethoxazole/Trimethoprim [Bactrim DS 800 mg-160 mg] 1 tab PO Q12 #14 tab - Follow Up Plan Condition: FAIR Disposition: HOME/ ROUTINE Patient education suggested?: Yes Instructions: Septic Arthritis, Ankle Sprain (DC), Weight-Bearing Restrictions Additional Instructions: Please follow up at [facility] on November 30, 2017. Please arrive at 1030 am. Medications sent to your pharmacy (2 antibiotics for 1 week, and prednisone for 2 days). Tiene rocio damon en [facility] ([address] [facility], [facility], tel: [phone]) jueves 5 de [place] a las 11 en [place]. Por favor llegue a las 10 :30. [facility] (2 antibioticos por 7 [place], y prednisone por 2 [place]) esta en [facility] ([facility]). Referrals: [facility] [Provider Group] - 11/30/17 11:00 am (Please arrive at 10:30 am.) Terrence Recinos III, MD [Staff Provider] - Lonnie De Souza MD [Staff Provider] -
== END 2017-11-23 13:30 | disposition home or self-care (01) | DRG 872 ==
LOC: H.ER 08:50 → H.ERHOLD 15:32 → H.MEDSURG1 17:08
PROVIDERS: ADMIT Family Medicine Geriatric Medicine; ATTEND Family Medicine Geriatric Medicine
PROC: 0S9G3ZX Drainage of Left Ankle Joint, Percutaneous Approach, Diagnostic (ICD-10-PCS; principal; 2017-11-18)
PROC: 3E0234Z Introduction of Serum, Toxoid and Vaccine into Muscle, Percutaneous Approach (ICD-10-PCS; 2017-11-18)
DX: A41.9 Sepsis, unspecified organism (principal); L03.116 Cellulitis of left lower limb; S93.492A Sprain of other ligament of left ankle, initial encounter; X50.1XXA Overexertion from prolonged static or awkward postures, initial encounter; Y93.01 Activity, walking, marching and hiking; Y92.9 Unspecified place or not applicable; M25.461 Effusion, right knee; E11.65 Type 2 diabetes mellitus with hyperglycemia; Z87.891 Personal history of nicotine dependence; Z23 Encounter for immunization; M19.90 Unspecified osteoarthritis, unspecified site